=== PATIENT | male | born 1985 | race Two or more races ===

== ENCOUNTER 2021-05-27 14:46 | Emergency (ER) | payer MEDICAID, OTHER ==
[~2021-05-27] VITALS: Ht 190.5 cm; Wt 122.5 kg
[2021-05-27 14:53] VITALS: BP 133/109
== END 2021-05-27 16:23 | disposition left against medical advice (07) ==
LOC: ER 14:46
DX: M54.9 Dorsalgia, unspecified (principal); Z53.21 Procedure and treatment not carried out due to patient leaving prior to being seen by health care provider

== ENCOUNTER 2021-09-06 02:13 | Emergency (ER) | payer MEDICAID, OTHER ==
[~2021-09-06] VITALS: Ht 190.5 cm; Wt 117.9 kg
[2021-09-06 03:02] LABS: Basophils # (auto) 0 10 ^3/uL (0-0.2); Basophils % (auto) 0.4 % (0.0-2.0); Eosinophils # (auto) 0.3 10 ^3/uL (0-0.8); Eosinophils % (auto) 3.8 % (0.0-7.0); Hematocrit 44.6 % (41.0-53.0); Hemoglobin 15.4 g/dL (13.5-17.5); Lymphocytes # (auto) 2.4 10 ^3/uL (0.4-5.4); Lymphocytes % (auto) 29.4 % (10.0-50.0); Mean Corpuscular Hemoglobin 29.1 pg (28.0-32.0); Mean Corpuscular Hgb Conc. 34.5 g/dL (32.0-36.0); Mean Corpuscular Volume 84.4 fL (80.0-100.0); Monocytes # (auto) 0.6 10 ^3/uL (0-1.3); Monocytes % (auto) 7.6 % (0.0-12.0); Neutrophils # (auto) 4.7 10 ^3/uL (1.6-8.6); Neutrophils % (auto) 58.8 % (37.0-80.0); Nucleated Red Blood Cells % 0.1 %; Red Blood Cells 5.29 10^6/uL (4.5-5.90); Red Cell Distribution Width 14.4 % (11.8-14.3); White Blood Cell 8.1 10^3/uL (4.4-10.8)
[2021-09-06 03:22] LABS: Albumin 3.8 g/dL (3.4-5.0); BUN/Creatinine Ratio 10.6; Calcium 8.8 mg/dL (8.5-10.1); Potassium 3.4 mmol/L (3.5-5.1)
[2021-09-06 03:26] VITALS: BP 168/110
[2021-09-06 03:26] LABS: Bilirubin, Total 0.6 mg/dL (0.2-1.0); Total Protein 8.2 g/dL (6.4-8.2)
== END 2021-09-06 05:28 | disposition left against medical advice (07) ==
LOC: ER 02:24
DX: R07.9 Chest pain, unspecified (principal); R20.2 Paresthesia of skin; Z53.21 Procedure and treatment not carried out due to patient leaving prior to being seen by health care provider
CPT/HCPCS: 36415; 80053; 84484; 85025

== ENCOUNTER 2021-09-18 12:04 | Emergency (ER) | payer OTHER ==
[~2021-09-18] VITALS: Ht 190.5 cm; Wt 122.5 kg
[2021-09-18 12:04] VITALS: BP 168/114
[2021-09-18 13:09] LABS: Basophils # (auto) 0 10 ^3/uL (0-0.2); Basophils % (auto) 0.4 % (0.0-2.0); Eosinophils # (auto) 0.4 10 ^3/uL (0-0.8); Eosinophils % (auto) 4.8 % (0.0-7.0); Hemoglobin 15.6 g/dL (13.5-17.5); Lymphocytes # (auto) 1.7 10 ^3/uL (0.4-5.4); Lymphocytes % (auto) 22.1 % (10.0-50.0); Mean Corpuscular Hemoglobin 28.2 pg (28.0-32.0); Mean Corpuscular Hgb Conc. 33.3 g/dL (32.0-36.0); Mean Corpuscular Volume 84.7 fL (80.0-100.0); Monocytes # (auto) 0.5 10 ^3/uL (0-1.3); Monocytes % (auto) 6.8 % (0.0-12.0); Neutrophils # (auto) 5.1 10 ^3/uL (1.6-8.6); Neutrophils % (auto) 65.9 % (37.0-80.0); Nucleated Red Blood Cells % 0.1 %; Red Blood Cells 5.56 10^6/uL (4.5-5.90); Red Cell Distribution Width 14.7 % (11.8-14.3); White Blood Cell 7.7 10^3/uL (4.4-10.8)
[2021-09-18 13:17] LABS: Albumin 3.7 g/dL (3.4-5.0); BUN/Creatinine Ratio 17.8; Calcium 9.7 mg/dL (8.5-10.1); Potassium 4.1 mmol/L (3.5-5.1)
[2021-09-18 13:20] LABS: Bilirubin, Total 0.5 mg/dL (0.2-1.0); Total Protein 7.7 g/dL (6.4-8.2)
[2021-09-18 13:47] LABS: Urine Bacteria NONE SEEN /hpf (None Seen); Urine Blood Negative /uL (Negative); Urine Mucus FEW (None Seen); Urine Specific Gravity 1.028 (1.001-1.035); Urine WBC 7 /hpf (0 - 3)
== END 2021-09-18 15:57 | disposition left against medical advice (07) ==
LOC: ER 12:04
DX: R07.9 Chest pain, unspecified (principal); R06.02 Shortness of breath; Z53.21 Procedure and treatment not carried out due to patient leaving prior to being seen by health care provider
CPT/HCPCS: 36415; 71046; 80053; 81001; 84484; 85025; 93005

== ENCOUNTER 2024-08-05 22:35 | Inpatient (IN) | payer MEDICAID, OTHER ==
[~2024-08-05] VITALS: Ht 190.5 cm; Wt 110.5 kg
[2024-08-05] MEDS: cloNIDine HCL 0.1 MG TAB PO ONE (23:09)
[2024-08-05 23:35] LABS: Basophils # (auto) 0 10 ^3/uL (0-0.2); Basophils % (auto) 0.4 % (0.0-2.0); Eosinophils # (auto) 0.2 10 ^3/uL (0-0.8); Eosinophils % (auto) 1.7 % (0.0-7.0); Hematocrit 42.4 % (41.0-53.0); Hemoglobin 13.8 g/dL (13.5-17.5); Lymphocytes % (auto) 20.2 % (10.0-50.0); Mean Corpuscular Hemoglobin 27.6 pg (28.0-32.0); Mean Corpuscular Hgb Conc. 32.5 g/dL (32.0-36.0); Monocytes # (auto) 0.9 10 ^3/uL (0-1.3); Monocytes % (auto) 8.5 % (0.0-12.0); Neutrophils % (auto) 69.2 % (37.0-80.0); Nucleated Red Blood Cells % 0.1 %; Platelet Count (auto) 227 10^3/uL (140-450); Red Blood Cells 4.99 10^6/uL (4.5-5.90); White Blood Cell 10.1 10^3/uL (4.4-10.8)
[2024-08-05 23:52] LABS: Albumin 4.4 g/dL (3.2-4.8); Alkaline Phosphatase 99 U/L (46-116); Anion Gap 10 (5-15); BUN/Creatinine Ratio 13.2 (10.0-20.0); Blood Urea Nitrogen 17 mg/dL (9-23); Calcium 9.9 mg/dL (8.7-10.4); Carbon Dioxide 26 mmol/L (20-31); Chloride 104 mmol/L (98-107); Glucose 92 mg/dL (74-106); Potassium 4.1 mmol/L (3.5-5.1); Sodium 140 mmol/L (136-145)
[2024-08-05 23:53] LABS: Alanine Aminotransferase 47 U/L (7-40); Aspartate Aminotransferase 44 U/L (13-40); Bilirubin, Total 1.5 mg/dL (0.2-1.0); Total Protein 7.1 g/dL (5.7-8.2)
[2024-08-06] VITALS (50 sets, daily range): BP systolic 114–142; BP diastolic 67–103; PULSE 101–116; RESP 7–41; TEMP 97.5–98.6; O2SAT 92–99
--- NOTE | 2024-08-06 00:37 | ED.PDOC ---
History of Present Illness HPI Comments 39 y/o M, with a history of HTN and obesity, presents with c/o HTN, shortness of breaht, othropnea, and bilateral leg swelling, today. Patient reports on checking and noticing his blood pressure being elevated in the 180's/120's range after onset of other aforementioned symptoms, earlier. He comments on taking losartan to manage his blood pressure, exclusively. Denies any chest pain, cough, congestion, fever, chills, or other associated symptoms at this time. Chief Complaint: High Blood Pressure Time Seen by MD: 22:50 Reviewed Notes: Nurses Notes, Medications, Allergies Allergies: Coded Allergies: No Known Drug Allergy (Verified Allergy, Unknown, 05/27/21) Information Source: Patient Mode of Arrival: Ambulatory Severity: Moderate Timing: Hours Duration: Since onset Prehospital treatment: None Past Medical History PAST MEDICAL HISTORY: HTN Past Medical History (Other): obesity Respiratory: reports: orthopnea, shortness of breath Musculoskeletal: reports: others (bilateral leg swelling ) Hematologic/Lymphatic: reports: others (HTN ) All Other Systems: Reviewed and Negative (negative unless otherwise stated above or in HPI) Physical Exam General Appearance: No Apparent Distress, Normal HEENT: Normal ENT Inspection, Pharynx Normal, TMs Normal Neck: Full Range of Motion, Non-Tender, Normal, Normal Inspection Respiratory: Chest Non-Tender, Lungs Clear, No Accessory Muscle Use, No Respiratory Distress, Normal Breath Sounds Cardiovascular: No Edema, No JVD, No Murmur, No Gallop, Normal Peripheral Pulses, Regular Rate/Rhythm Breast Exam: Deferred Gastrointestinal: No Organomegaly, Non Tender, No Pulsatile Mass, Normal Bowel Sounds, Soft Genitalia: Deferred Pelvic: Deferred Rectal: Deferred Extremities: Leg edema (3+ pitting bilateral edema ), No calf tenderness, Normal capillary refill, Normal range of motion, Non-tender Musculoskeletal : Apperance: Normal Neurologic: Alert, can pusher II-XII nml as Tested, No Motor Deficits, Normal Affect, Normal Mood, No Sensory Deficits Cerebellar Function: Normal Reflexes: Normal Skin: Dry, Normal Color, Warm Lymphatic: No Adenopathy Was a procedure done? Was a procedure done?: No Differential Dx Considerations may include: HTN emergency, fluid retention, URI, viral syndrome X-Ray, Labs, Meds, VS Vital Signs Date Time Temp Pulse Resp B/P (MAP) Pulse Ox O2 Delivery O2 Flow Rate FiO2 08/06/24 00:25 122 08/05/24 23:09 189/155 08/05/24 22:54 98.1 130 16 189/155 (166) 98 Lab Test 08/06/24 00:15 08/05/24 23:08 Range/Units Troponin I High Sensitivity 95 *H 90 *H </=54 ng/L White Blood Count 10.1 4.4-10.8 10^3/uL Red Blood Count 4.99 4.5-5.90 10^6/uL Hemoglobin 13.8 13.5-17.5 g/dL Hematocrit 42.4 41.0-53.0 % Mean Corpuscular Volume 85.0 80.0-100.0 fL Mean Corpuscular Hemoglobin 27.6 L 28.0-32.0 pg Mean Corpuscular Hemoglobin Concent 32.5 32.0-36.0 g/dL Red Cell Distribution Width 16.0 H 11.8-14.3 % Platelet Count 227 140-450 10^3/uL Mean Platelet Volume 7.8 6.9-10.8 fL Neutrophils (%) (Auto) 69.2 37.0-80.0 % Lymphocytes (%) (Auto) 20.2 10.0-50.0 % Monocytes (%) (Auto) 8.5 0.0-12.0 % Eosinophils (%) (Auto) 1.7 0.0-7.0 % Basophils (%) (Auto) 0.4 0.0-2.0 % Neutrophils # (Auto) 7.0 1.6-8.6 10 ^3/uL Lymphocytes # (Auto) 2.0 0.4-5.4 10 ^3/uL Monocytes # (Auto) 0.9 0-1.3 10 ^3/uL Eosinophils # (Auto) 0.2 0-0.8 10 ^3/uL Basophils # (Auto) 0 0-0.2 10 ^3/uL Nucleated Red Blood Cells 0.1 % Sodium Level 140 136-145 mmol/L Potassium Level 4.1 3.5-5.1 mmol/L Chloride Level 104 98-107 mmol/L Carbon Dioxide Level 26 20-31 mmol/L Anion Gap 10 5-15 Blood Urea Nitrogen 17 9-23 mg/dL Creatinine 1.29 0.700-1.30 mg/dL Glomerular Filtration Rate Calc 73 >90 mL/min BUN/Creatinine Ratio 13.2 10.0-20.0 Serum Glucose 92 74-106 mg/dL Calcium Level 9.9 8.7-10.4 mg/dL Total Bilirubin 1.5 H 0.2-1.0 mg/dL Aspartate Amino Transferase (AST) 44 H 13-40 U/L Alanine Aminotransferase (ALT) 47 H 7-40 U/L Alkaline Phosphatase 99 46-116 U/L B-Type Natriuretic Peptide 595.87 0-100 pg/mL Total Protein 7.1 5.7-8.2 g/dL Albumin 4.4 3.2-4.8 g/dL Current Medications Medications (Trade) Dose Ordered Sig/Nathan Route Start Time Stop Time Status Last Admin Clonidine HCl (Catapres Tablet) 0.2 mg ONCE ONCE PO 08/05/24 23:00 08/05/24 23:01 DC 08/05/24 23:09 [place] [id number] Ph: [phone] DIAGNOSTIC IMAGING Diagnostic Imaging Report : [id number] Signed PATIENT: LOREN VALDES ACCT: [id number] UNIT: [id number] : 1985 LOC: ER ROOM / BED: / AGE / SEX: 39 / M ADM STATUS: REG ER SERVICE ORDERING PHYSICIAN: CODY REDDING PROCEDURE(s): CXR1 - CHEST XRAY 1 VIEW REASON: sob ORDER NUMBER(s): [id number], ACCESSION NUMBER(s): [id number] CHEST RADIOGRAPH Indication: sob Technique: Single frontal view of the chest was obtained COMPARISON: None FINDINGS: Lines and Tubes: None Lungs: Clear Pleura: No effusion. No pneumothorax. Cardiomediastinal contours: Mild cardiomegaly Bones: Unremarkable IMPRESSION: 1. No acute disease. ATED BY: SHAY DUMONT MD DICTATED DATE/TIME: 08/06/2449 SIGNED BY: SHAY DUMONT MD SIGNED DATE/TIME: 08/06/2449 CC: X-Ray, Labs, Meds, VS Comment Imaging: X-rays and CT scans were reviewed and interpreted by this provider, imaging shows no fractures and no pathological disease. Pending radiology review. Laboratory: Labs reviewed and interpreted by this provider. Elevated troponins, elevated BNP Patient will be admitted for ACS, NSTEMI Patient will be admitted for CHF exacerbation Patient will be started on 20 mg Lasix Recommend cardiology consult in the morning Patient has prior medical visits reviewed. Med reconciliation performed Vital signs reviewed Time of 1ST Reevaluation: 23:20 Reevaluation 1ST: Unchanged Patient Education/Counseling: Diagnosis, Treatment Family Education/Counseling: No Family Present Departure 1 Departure Time of Disposition: 01:09 Impression: Primary Impression: CHF (congestive heart failure) Qualified Codes: I50.21 - Acute systolic (congestive) heart failure Additional Impressions: Elevated troponin Peripheral edema Shortness of breath Disposition: ADMITTED INPATIENT Condition: Fair Discharged With: Self Critical Care Note Critical Care Time?: No Stability Stability form required: No Heart Score Heart Score: Heart Score Response (Comments) Value History Slightly Suspicious 0 EKG Normal 0 Age <45 0 Risk Factors 1 or 2 risk factors 1 Troponin 1-2 x's Normal limit 1 Total 2 I personally scribed for CODY REDDINGP ([email or web address]) on 08/06/24 at 00:37. Electronically submitted by Nikunj Beckwith ([email or web address]). I personally scribed for CODY REDDING COPYHOLDER ([email or web address]) on 08/06/24 at 00:58. Electronically submitted by Nikunj Beckwith ([email or web address]). CODY REDDING COPYHOLDER Aug 06, 2024 00:37
--- NOTE | 2024-08-06 00:53 | DVH ---
CHEST RADIOGRAPH Indication: sob Technique: Single frontal view of the chest was obtained COMPARISON: None FINDINGS: Lines and Tubes: None Lungs: Clear Pleura: No effusion. No pneumothorax. Cardiomediastinal contours: Mild cardiomegaly Bones: Unremarkable IMPRESSION: 1. No acute disease.
[2024-08-06] MEDS ORDERED: NITROGLYCERIN 0.4 MG SL TAB SL PRN (01:45)
[2024-08-06] MEDS ORDERED: MORPHINE SULFATE INJ 2 MG/ml SYRG IV PRN (01:45)
--- NOTE | 2024-08-06 02:06 | DVHHPRES ---
History of Present Illness Resident Creating Document: SATNAM HEIN RESIDENT History of Present Illness Familia Raza is a 39-year-old male with a PMH of hypertension, asthma, eczema presented to the ED with the chief complaints of lower extremity edema since day prior to admission. Patient reported per past 1 week patient has been having difficulty in sleeping due to shortness of breath while lying down, orthopnea and PND associated with mild dry cough and he observed lower extremity swelling yesterday which is not has been improved which prompted him to visit ED. patient reported he has been diagnosed with a hypertension for 5 years and has been taking losartan 50 mg and his blood pressure is always in 180s. On my assessment patient denies headache, dizziness, nausea, vomiting, palpitations, chest pain, diaphoresis, and other acute associated symptoms. PMH: HTN since 6 years, asthma since childhood, eczema PSH: Denies Family history: Hypertension in mother, maternal uncle and grandfather have heart failure Social history: Lives with family. Methamphetamine abuser quit 2 weeks ago but denies smoking alcohol and other illicit drug abuse Allergies: No known allergies Home medications: Losartan 50 mg, albuterol inhaler, triamcinolone cream Review of Systems Constitutional: No: Fever, Chills, Sweats, Weakness, Malaise, Other Eyes: No: Pain, Vision change, Conjunctivae inflammation, Eyelid inflammation, Other, Redness ENT: No: Ear pain, Ear discharge, Nose pain, Nose discharge, Nose congestion, Mouth pain, Mouth swelling, Throat pain, Throat swelling, Other Respiratory: Shortness of breath Cardiovascular: Orthopnea, Paroxysmal Noc. Dyspnea, Edema Gastrointestinal: No: Nausea, Vomiting, Abdominal Pain, Diarrhea, Constipation, Melena, Hematochezia, Other Genitourinary: No Dysuria, No Frequency, No Incontinence, No Hematuria, No Retention, No Other Musculoskeletal: No: other, neck pain, shoulder pain, arm pain, back pain, hand pain, leg pain, foot pain Skin: No: Rash, Lesions, Jaundice, Bruising, Other Neurological: No: Weakness, Numbness, Incoordination, Change in speech, Confusion, Seizures, Other Allergies: Coded Allergies: No Known Drug Allergy (Verified Allergy, Unknown, 05/27/21) Medications Current Medications Medications Dose Ordered Sig/Nathan Route Start Time Stop Time Status Last Admin Dose Admin Losartan Potassium 50 mg DAILY PO 08/06/24 10:00 Furosemide 40 mg BID IV 08/06/24 01:45 Nicardipine HCl 250 ml @ 50 mls/hr Q5H IV 08/06/24 01:45 Sodium Chloride 10 ml Q8HR IV 08/06/24 06:00 Enoxaparin Sodium 40 mg DAILY SC 08/06/24 10:00 Acetaminophen 650 mg Q6HP PRN PO 08/06/24 01:45 Nitroglycerin 0.4 mg Q5MINP PRN SL 08/06/24 01:45 Morphine Sulfate 2 mg Q30M PRN IV 08/06/24 01:45 Exam Vital Signs Vital Signs Date Time Temp Pulse Resp B/P (MAP) Pulse Ox O2 Delivery O2 Flow Rate FiO2 08/06/24 01:43 98.1 116 32 174/130 (145) 98 98.1 Exam Pt is lying on bed General Appearance: Alert, Oriented X3, Cooperative, Not in acute distress HEENT: Atraumatic, Mucous membranes moist/pink Respiratory: Clear to auscultation, Normal air movement, No added sounds Cardiovascular: Regular rate, Normal S1, Normal S2, No murmurs Abdominal: Active bowel sounds, Soft, no distention, no tenderness Extremities: 2+ BLE edema, Normal pulses, No tenderness/swelling Skin: No Significant rash, except past surgical scars Neuro: Normal speech, sensorimotor deficits none Psych/Mental Status: Mental status NL, Mood NL Nurse was there as sharperone during examination Labs/Xrays Labs Test 08/06/24 00:15 08/05/24 23:08 Range/Units Troponin I High Sensitivity 95 *H </=54 ng/L White Blood Count 10.1 4.4-10.8 10^3/uL Red Blood Count 4.99 4.5-5.90 10^6/uL Hemoglobin 13.8 13.5-17.5 g/dL Hematocrit 42.4 41.0-53.0 % Mean Corpuscular Volume 85.0 80.0-100.0 fL Mean Corpuscular Hemoglobin 27.6 L 28.0-32.0 pg Mean Corpuscular Hemoglobin Concent 32.5 32.0-36.0 g/dL Red Cell Distribution Width 16.0 H 11.8-14.3 % Platelet Count 227 140-450 10^3/uL Mean Platelet Volume 7.8 6.9-10.8 fL Neutrophils (%) (Auto) 69.2 37.0-80.0 % Lymphocytes (%) (Auto) 20.2 10.0-50.0 % Monocytes (%) (Auto) 8.5 0.0-12.0 % Eosinophils (%) (Auto) 1.7 0.0-7.0 % Basophils (%) (Auto) 0.4 0.0-2.0 % Neutrophils # (Auto) 7.0 1.6-8.6 10 ^3/uL Lymphocytes # (Auto) 2.0 0.4-5.4 10 ^3/uL Monocytes # (Auto) 0.9 0-1.3 10 ^3/uL Eosinophils # (Auto) 0.2 0-0.8 10 ^3/uL Basophils # (Auto) 0 0-0.2 10 ^3/uL Nucleated Red Blood Cells 0.1 % Sodium Level 140 136-145 mmol/L Potassium Level 4.1 3.5-5.1 mmol/L Chloride Level 104 98-107 mmol/L Carbon Dioxide Level 26 20-31 mmol/L Anion Gap 10 5-15 Blood Urea Nitrogen 17 9-23 mg/dL Creatinine 1.29 0.700-1.30 mg/dL Glomerular Filtration Rate Calc 73 >90 mL/min BUN/Creatinine Ratio 13.2 10.0-20.0 Serum Glucose 92 74-106 mg/dL Calcium Level 9.9 8.7-10.4 mg/dL Total Bilirubin 1.5 H 0.2-1.0 mg/dL Aspartate Amino Transferase (AST) 44 H 13-40 U/L Alanine Aminotransferase (ALT) 47 H 7-40 U/L Alkaline Phosphatase 99 46-116 U/L B-Type Natriuretic Peptide 595.87 0-100 pg/mL Total Protein 7.1 5.7-8.2 g/dL Albumin 4.4 3.2-4.8 g/dL Assessment/Plan Assessment/Plan # ? New onset systolic versus diastolic CHF # hypertensive emergency # NSTEMI type 2 likely due to above -continuously monitoring on telemetry -currently received Lasix, losartan, nicardipine drip -closely monitor blood pressure -ordered echocardiogram -cardiology consult -ordered UDS -elevated BNP, troponins -reviewed EKG # asthma not in exacerbation -resume home meds # methamphetamine abuse disorder -ordered UDS -counseled regarding cessation for >17 minutes # rule out DVT -ordered scan PUD PPX: Not indicated VTE PPX: Lovenox Diet: Cardiac diet Goals of care discussed with the patient for more than 27 minutes: Full code status Case discussed with Dr. Killian, patient and nurse Plan discussed with: Patient My Orders Orders - SATNAM HEIN RESIDENT Procedure Category Date Status Time Admit ADMIT 08/06/24 Transmitted 01:41 Allergies MAIK 08/06/24 In Process 01:41 Code Status CODE 08/06/24 Transmitted 01:41 Sodium Chloride Lock PHA 08/06/24 In Process (Saline Lock Ns) 06:00 Enoxaparin Sodium PHA 08/06/24 In Process (Lovenox) 10:00 Complete Blood Count LAB 08/06/24 Transmitted 04:00 Comprehensive LAB 08/06/24 Transmitted Metabolic Panel 04:00 Cardiac DIET 08/06/24 Transmitted Diet-2gna,Lofat,Lochol Breakfast Echo 2d Mode Cardiac US 08/06/24 Logged DOP 01:41 Condition: Stable MAIK 08/06/24 In Process 01:41 Acetaminophen Tablet PHA 08/06/24 In Process (Tylenol Tablet) 01:45 Nitroglycerin PHA 08/06/24 In Process Sublingual (Ntrostat 01:45 Morphine Sulfate PHA 08/06/24 In Process Injection 01:45 Oxygen By Nasal RT 08/06/24 Transmitted Cannula 01:41 Stat Ekg For Chest [facility] 08/06/24 In Process Pain 01:41 Notify Of Changes [facility] 08/06/24 In Process From Base 01:41 Bending Machine Set Up Operator For [facility] 08/06/24 In Process 24 Hours 01:41 Emergency Dysrhythmia [facility] 08/06/24 In Process Protocol 01:41 Rhythm Strips Once [facility] 08/06/24 In Process Every Shift 01:41 Bilat Lower Dvt US 08/06/24 Logged 01:46 Blood Alcohol LAB 08/06/24 Logged 01:47 Covid19 Antigen [place] LAB 08/06/24 Logged Drug Screen LAB 08/06/24 Logged 01:47 Hemoglobin A1c LAB 08/06/24 Logged 01:47 Lipid Panel LAB 08/06/24 Logged 01:47 Magnesium LAB 08/06/24 Logged 01:47 PTPTT LAB 08/06/24 Logged 01:47 Rapid Influenza A&B LAB 08/06/24 Logged 01:47 Thyroid Stimulating LAB 08/06/24 Logged Hormone 01:47 Urinalysis LAB 08/06/24 Logged 01:47 Hepatic Panel LAB 08/06/24 Logged 01:47 D-Dimer LAB 08/06/24 Logged 01:47 Transfer Orders XFER 08/06/24 Transmitted 01:57 Date of Service: Aug 06, 2024 Billing Provider: PEYTON KILLIAN MD Common Visit Codes: [id number]-[id number] INP/OBS CARE (HIGH) SATNAM HEIN RESIDENT Aug 06, 2024 02:05 PEYTON KILLIAN MD Aug 06, 2024 19:58
[2024-08-06 02:28] LABS: Triglycerides 80 mg/dL (< 150)
[2024-08-06 02:29] LABS: LDL Cholesterol 97 mg/dL (< 100)
[2024-08-06 02:30] LABS: Albumin 4.3 g/dL (3.2-4.8); Alkaline Phosphatase 97 U/L (46-116); Magnesium 1.9 mg/dL (1.6-2.6)
[2024-08-06 02:31] LABS: Cholesterol 156 mg/dL (< 200); HDL Cholesterol 45 mg/dL (40-59); Total Protein 7.3 g/dL (5.7-8.2)
[2024-08-06] MEDS: FUROSEMIDE 40 MG/4 ML VIAL IV SCH (02:36)
[2024-08-06 02:41] LABS: Alanine Aminotransferase 48 U/L (7-40); Aspartate Aminotransferase 41 U/L (13-40); Bilirubin, Direct 0.5 mg/dL (<0.3); Bilirubin, Total 1.4 mg/dL (0.2-1.0); Blood Alcohol < 3.0 mg/dL (<10)
[2024-08-06 02:47] LABS: INR 1.11 (0.9-1.15); Partial Thromboplastin Time 26.8 SEC (24.5-34.5); Prothrombin Time 11.6 sec (9.3-11.8)
[2024-08-06 03:08] LABS: Urine Bacteria None Seen /hpf (None Seen)
[2024-08-06 03:24] LABS: Urine Blood Negative /uL (Negative); Urine Clarity Clear (Clear); Urine Color Light-Yellow (Yellow); Urine Mucus FEW (None Seen); Urine Protein, UAD 1+ (Negative); Urine Specific Gravity 1.014 (1.001-1.035); Urine Sperm PRESENT /hpf (None Seen); Urine Squamous Epithelial Cell FEW /hpf (<5); Urine Urobilinogen Normal (Negative); Urine WBC 1 /HPF (0-3); Urine pH 5.5 (5.0-9.0)
[2024-08-06 03:27] LABS: Amphetamine Screen, Urine Pos (NEGATIVE); Barbiturate Scree,Urine Neg (NEGATIVE); Benzodiazephine Screen, Urine Neg (NEGATIVE); Cannabinoid Screen, Urine Neg (NEGATIVE); Cocaine Screen, Urine Neg (NEGATIVE); Phencyclidine Screen, Urine Neg (NEGATIVE)
[2024-08-06 03:31] LABS: Opiate Scree,Urine Neg (NEGATIVE)
--- NOTE | 2024-08-06 03:49 | DVH ---
Examination: BLDVT CLINICAL INDICATION: rule out VTE COMPARISON: None. TECHNIQUE: Using real-time ultrasonic imaging and color Doppler the deep venous system of both lower extremities was studied from the level of the common femoral veins to the posterior tibial veins. FINDINGS: Ultrasound examination of bilateral common femoral veins, bilateral deep femoral veins, th e proximal, middle and distal segments of bilateral superficial femoral veins, bilateral popliteal ve ins, and bilateral posterior tibial veins reveal normal phasicity and compression and augmentation. No thrombus was visualized. IMPRESSION: There is no evidence of deep venous thrombosis in bilateral lower extremity venous syste ms. Electronically Signed 08/06/2024 03:48 Denise Grace
[2024-08-06 05:25] LABS: COVID19 ANTIGEN SOFIA FIA NEGATIVE (NEGATIVE); Rapid Influenza A Negative (Negative); Rapid Influenza B Negative (Negative)
[2024-08-06 05:36] LABS: Basophils # (auto) 0.1 10 ^3/uL (0-0.2); Basophils % (auto) 0.7 % (0.0-2.0); Eosinophils # (auto) 0.2 10 ^3/uL (0-0.8); Eosinophils % (auto) 2.1 % (0.0-7.0); Hematocrit 40.7 % (41.0-53.0); Hemoglobin 13.3 g/dL (13.5-17.5); Lymphocytes # (auto) 2.4 10 ^3/uL (0.4-5.4); Lymphocytes % (auto) 20.6 % (10.0-50.0); Mean Corpuscular Hemoglobin 27.6 pg (28.0-32.0); Mean Corpuscular Hgb Conc. 32.7 g/dL (32.0-36.0); Mean Corpuscular Volume 84.4 fL (80.0-100.0); Monocytes % (auto) 8.3 % (0.0-12.0); Neutrophils # (auto) 7.9 10 ^3/uL (1.6-8.6); Neutrophils % (auto) 68.3 % (37.0-80.0); Platelet Count (auto) 227 10^3/uL (140-450); Red Blood Cells 4.82 10^6/uL (4.5-5.90); Red Cell Distribution Width 15.8 % (11.8-14.3); White Blood Cell 11.5 10^3/uL (4.4-10.8)
[2024-08-06] MEDS: SODIUM CHLOR 0.9% PF (SALINE LOCK) 10ML VIAL/SYR IV SCH (06:00)
[2024-08-06 06:04] LABS: Albumin 4.4 g/dL (3.2-4.8); Alkaline Phosphatase 94 U/L (46-116); Anion Gap 11 (5-15); BUN/Creatinine Ratio 11.8 (10.0-20.0); Blood Urea Nitrogen 14 mg/dL (9-23); Calcium 9.9 mg/dL (8.7-10.4); Carbon Dioxide 24 mmol/L (20-31); Chloride 104 mmol/L (98-107); Sodium 139 mmol/L (136-145); Total Protein 7.4 g/dL (5.7-8.2)
[2024-08-06 06:42] LABS: Alanine Aminotransferase 43 U/L (7-40); Aspartate Aminotransferase 40 U/L (13-40); Bilirubin, Total 1.6 mg/dL (0.2-1.0); Glucose 117 mg/dL (74-106); Potassium 3.3 mmol/L (3.5-5.1)
[2024-08-06] MEDS: POTASSIUM CHL 20 Meq TABLET PO ONE (10:07)
[2024-08-06] MEDS: LOSARTAN POTASSIUM 50 MG TAB PO SCH (10:12)
[2024-08-06] MEDS: ENOXAPARIN SOD 40 MG/0.4 ML SYRINGE SC SCH (10:16)
--- NOTE | 2024-08-06 13:46 | ECG ---
[facility] Test Date: 2024-08-06 Test Time: 00:25:43 Pat Name: LOREN VALDES Department: ED Room: 0270T Gender: M Unbundler: TEETEE : 1985 Requested By: CODY REDDING Order Number: [id number] Reading MD: Cruz Carreno Measurements Intervals [place] Rate: 122 P: 65 NM: 143 QRS: 104 QRSD: 114 T: 0 QT: 349 QTc: 498 Interpretive Statements Sinus tachycardia Probable left atrial enlargement Incomplete right bundle branch block Consider left ventricular hypertrophy Borderline prolonged QT interval Electronically Signed On 08-10-2024 17:26:19 PST by Cruz Carreno Please click the below link to view image of tracing.
--- NOTE | 2024-08-06 14:43 | DVHPNRES ---
Progress Note Date Seen: Aug 06, 2024 Resident Creating Document: SUSAN MILTON RESIDENT Medical Necessity Reason Pt with a Central, PICC or Fol: No Subjective Review of Systems PMH- PSH- Allergy- Personal History/ Social History- Patient was seen today at the bedside. Patient Cardiovascular- deny acute chest pain or shortness of breath or cough or palpitation Respiratory denies cough or short of breath or wheezing Gastrointestinal- denies any rectal bleeding, nausea or vomiting Musculoskeletal-denies acute joint swelling or tenderness or redness Neurological- denies acute dysarthria, dysphagia, change in vision Psychiatry- denies depression or SI or HI Skin- denies acute rash or purpura Objective vital signs Vital Sign Date Time Temp Pulse Resp B/P (MAP) Pulse Ox O2 Delivery O2 Flow Rate FiO2 08/06/24 12:00 105 08/06/24 12:00 28 98 Nasal Cannula* 2 08/06/24 11:45 125/87 (100) 08/06/24 08:00 98.0 98.0 Total Intake and Output 08/05/24 08/05/24 08/06/24 15:00 23:00 07:00 Intake Total 375 ml Balance 375 ml medications Current Medications Medications Dose Ordered Sig/Nathan Route Start Time Stop Time Status Last Admin Dose Admin Losartan Potassium 50 mg DAILY PO 08/06/24 10:00 08/06/24 10:12 50 MG Furosemide 40 mg BID IV 08/06/24 01:45 08/06/24 10:11 40 MG Nicardipine HCl 250 ml @ 50 mls/hr Q5H IV 08/06/24 01:45 08/06/24 10:01 50 MLS/HR Sodium Chloride 10 ml Q8HR IV 08/06/24 06:00 Enoxaparin Sodium 40 mg DAILY SC 08/06/24 10:00 08/06/24 10:16 40 MG Acetaminophen 650 mg Q6HP PRN PO 08/06/24 01:45 Nitroglycerin 0.4 mg Q5MINP PRN SL 08/06/24 01:45 Morphine Sulfate 2 mg Q30M PRN IV 08/06/24 01:45 Examination General examination- HEENT- PEERLA, no acute nasal discharge Cardiovascular- S1-S2 audible, rate and rhythm regular, no murmur Respiratory- CTAB, no wheeze or rhonchi Gastrointestinal-nontender, bowel sound+. Nondistended Musculoskeletal-no acute joint swelling or tenderness or redness# Lower extremity- Neurological- cranial nerves intact, no acute dysarthria or dysphagia Psychiatry- denies depression or SI or HI Skin- no acute rash or purpura laboratory and microbiology Laboratory Tests 08/06/24 05:01 Test 08/06/24 05:01 Range/Units Serum Glucose 117 H 74-106 mg/dL Problem List/Assessment/Plan Problem List/Assessment/Plan Goals of care/advance care planning; FULL CODE; discussed with the patient >15 minutes PUD prophylaxis: DVT prophylaxis: Plan discussed with Dr. Mark , nursing staff, patient Total time spent on patient evaluation, chart review, assessment and plan, discussion discussion >31 minutes Plan discussed with: Patient Plan discussed with: Patient, Other (MOTHER, RN) SUSAN MILTON RESIDENT Aug 06, 2024 14:43
[2024-08-06] MEDS: ACETAMINOPHEN 325 MG TAB PO PRN (18:52)
--- NOTE | 2024-08-06 20:35 | DVHPNRES ---
Progress Note Date Seen: Aug 06, 2024 Resident Creating Document: SUSAN MILTON RESIDENT Medical Necessity Reason Pt with a Central, PICC or Fol: No Subjective Review of Systems Familia Raza is a 39-year-old male with a PMH of hypertension, asthma, eczema presented to the ED with the chief complaints of lower extremity edema since day prior to admission. Patient reported per past 1 week patient has been having difficulty in sleeping due to shortness of breath while lying down, orthopnea and PND associated with mild dry cough and he observed lower extremity swelling yesterday which is not has been improved which prompted him to visit ED. patient reported he has been diagnosed with a hypertension for 5 years and has been taking losartan 50 mg and his blood pressure is always in 180s. On my assessment patient denies headache, dizziness, nausea, vomiting, palpitations, chest pain, diaphoresis, and other acute associated symptoms. Significant lab workup revealed potassium 3.3, bilirubin 1.6, troponin 90, BNP 595, UDS positive for amphetamine. PMH: HTN since 5 years, asthma since childhood, eczema PSH: Denies Family history: Hypertension in mother, maternal uncle and grandfather have heart failure Social history: Lives with family. Methamphetamine abuser quit 2 weeks ago but denies smoking alcohol and other illicit drug abuse Allergies: No known allergies Home medications: Losartan 50 mg, albuterol inhaler, triamcinolone cream Patient was seen today at the bedside. Cardiovascular- deny acute palpitation Respiratory denies wheezing Gastrointestinal- denies any rectal bleeding, nausea or vomiting Musculoskeletal-denies acute joint swelling or tenderness or redness Neurological- denies acute dysarthria, dysphagia, change in vision Psychiatry- denies depression or SI or HI Skin- denies acute rash or purpura Patient was seen today for clinical evaluation. Less than chart reviewed. Patient reported feeling better today but feels orthopnea times. Pending cardiology consult. Pending echo 2D report. Objective vital signs Vital Sign Date Time Temp Pulse Resp B/P (MAP) Pulse Ox O2 Delivery O2 Flow Rate FiO2 08/06/24 19:30 98.2 111 20 132/98 (109) 96 98.2 08/06/24 19:30 Room Air* 0 21 Total Intake and Output 08/05/24 08/05/24 08/06/24 15:00 23:00 07:00 Intake Total 375 ml Balance 375 ml medications Current Medications Medications Dose Ordered Sig/Nathan Route Start Time Stop Time Status Last Admin Dose Admin Losartan Potassium 50 mg DAILY PO 08/06/24 10:00 08/06/24 10:12 50 MG Furosemide 40 mg BID IV 08/06/24 01:45 08/06/24 10:11 40 MG Nicardipine HCl 250 ml @ 50 mls/hr Q5H IV 08/06/24 01:45 08/06/24 10:01 50 MLS/HR Sodium Chloride 10 ml Q8HR IV 08/06/24 06:00 08/06/24 14:00 10 ML Enoxaparin Sodium 40 mg DAILY SC 08/06/24 10:00 08/06/24 10:16 40 MG Acetaminophen 650 mg Q6HP PRN PO 08/06/24 01:45 08/06/24 18:52 650 MG Nitroglycerin 0.4 mg Q5MINP PRN SL 08/06/24 01:45 Morphine Sulfate 2 mg Q30M PRN IV 08/06/24 01:45 Examination General examination- awake, alert, oriented, conversive HEENT- PEERLA, no acute nasal discharge Cardiovascular- S1-S2 audible, rate and rhythm regular, no murmur Respiratory- CTAB, no wheeze or rhonchi Gastrointestinal-nontender, bowel sound+. Nondistended Musculoskeletal-no acute joint swelling or tenderness or redness# Lower extremity- + leg edema Neurological- cranial nerves intact, no acute dysarthria or dysphagia Psychiatry- denies depression or SI or HI Skin- no acute rash or purpura laboratory and microbiology Laboratory Tests 08/06/24 18:47 08/06/24 05:01 Test 08/06/24 05:01 Range/Units Serum Glucose 117 H 74-106 mg/dL Problem List/Assessment/Plan Problem List/Assessment/Plan Acute hypoxic respiratory failure likely due to acute pulmonary edema Pulmonary edema likely due to hypertensive emergency Non STEMI likely type 2 due to substance abuse Substance abuse amphetamine Bilateral leg edema likely due to acute heart failure Hypertensive emergency Hypokalemia replenished Prediabetes Asthma Eczema Plan Continue Lasix 40 mg b.i.d. Continue Lovenox 40 mg subcutaneously daily Continue other medications as prescribed Pending acute 2D report Pending echo 2D report Goals of care/advance care planning; FULL CODE; discussed with the patient >15 minutes PUD prophylaxis: DVT prophylaxis: Lovenox Plan discussed with Dr. Mark , nursing staff, patient Total time spent on patient evaluation, chart review, assessment and plan, discussion discussion >31 minutes Plan discussed with: Patient Plan discussed with: Patient, Other (Mother, RN) My Orders My Orders Orders - SUSAN MILTON Procedure Category Date Status Time * [employer] CONS 08/06/24 Transmitted Consult 15:26 Date of Service: Aug 06, 2024 Billing Provider: SUSANA ROSALES MD Common Visit Codes: [id number] INP/OBS CARE(HIGH) SUSAN MILTON Aug 06, 2024 20:35 SUSANA ROSALES MD Aug 06, 2024 23:50
[2024-08-06] MEDS: dilTIAZem 120MG ER CAP PO ONE (20:45)
[2024-08-07] VITALS (9 sets, daily range): BP systolic 131–165; BP diastolic 61–117; PULSE 95–119; RESP 16–20; TEMP 98–98.8; O2SAT 96–99
[2024-08-07] MEDS ORDERED: AMOX250C3 PO (05:04)
[2024-08-07] MEDS ORDERED: LOSA-533 PO (05:04)
[2024-08-07 06:58] LABS: Basophils # (auto) 0 10 ^3/uL (0-0.2); Basophils % (auto) 0.5 % (0.0-2.0); Eosinophils # (auto) 0.2 10 ^3/uL (0-0.8); Eosinophils % (auto) 3.1 % (0.0-7.0); Hemoglobin 15.7 g/dL (13.5-17.5); Lymphocytes # (auto) 1.6 10 ^3/uL (0.4-5.4); Lymphocytes % (auto) 20.4 % (10.0-50.0); Mean Corpuscular Hemoglobin 27.5 pg (28.0-32.0); Mean Corpuscular Hgb Conc. 32.8 g/dL (32.0-36.0); Monocytes # (auto) 0.8 10 ^3/uL (0-1.3); Monocytes % (auto) 10.8 % (0.0-12.0); Neutrophils % (auto) 65.2 % (37.0-80.0); Nucleated Red Blood Cells % 0.1 %; Platelet Count (auto) 233 10^3/uL (140-450); Red Blood Cells 5.71 10^6/uL (4.5-5.90); Red Cell Distribution Width 16.5 % (11.8-14.3); White Blood Cell 7.6 10^3/uL (4.4-10.8)
[2024-08-07 07:16] LABS: Anion Gap 12 (5-15); Carbon Dioxide 28 mmol/L (20-31); Chloride 98 mmol/L (98-107); Sodium 138 mmol/L (136-145)
[2024-08-07 07:22] LABS: BUN/Creatinine Ratio 13.4 (10.0-20.0); Blood Urea Nitrogen 16 mg/dL (9-23); Glucose 101 mg/dL (74-106)
[2024-08-07 07:23] LABS: Magnesium 1.9 mg/dL (1.6-2.6)
[2024-08-07 07:24] LABS: Potassium 3.4 mmol/L (3.5-5.1)
[2024-08-07] MEDS: dilTIAZem 120MG ER CAP PO SCH (08:35)
[2024-08-07] MEDS: NIFEdipine ER 30 MG TAB PO ONE (10:18)
[2024-08-07] MEDS: POTASSIUM CHL 20 Meq TABLET PO ONE ×3 (10:18→15:07)
[2024-08-07] MEDS: LOSARTAN POTASSIUM 50 MG TAB PO ONE (10:18)
--- NOTE | 2024-08-07 14:20 | DVHCONRES ---
Date Seen: Aug 07, 2024 Resident Creating Document: ZAYRA BEDOLLA RESIDENT Referring Physician Dr. Martinez, resident Reason for Consultation CHF History of Present Illness This is a 39-year-old male who comes into the ED with chief complain of lower extremity edema. He has a past medical history relevant for hypertension, asthma, eczema. Denies any surgical history. Social history: States being using methamphetamine on a daily basis for the last 10 years, last time he used was two weeks ago. Denies alcohol or nicotine use. Family history: Patient stated that his mother has hypertension, grandfather had heart failure. Home medications: Losartan 50 mg p.o. q.d., albuterol inhaler Patient states that for the last four days he has been experiencing worsening lower extremity edema, he stated that for last one week he has been having difficulty sleeping, stated that he uses up to 10 pillows, he has difficulty lying flat due to shortness of breath. He also states having mild dry cough, denies any chest pain, dizziness, lightheadedness, abdominal pain, fevers, chills. On patient arrival to the ED, he was noted to be hypertensive, he was initiated on clonidine 0.2 mg p.o. once, his initial blood pressure was 194/170, he was tachycardic, on room air, CBC was unremarkable, BNP was 600, troponins were 90- 95 -94, TSH was within normal limits, was noted to be mild hypokalemic, A1c was 6%. UDS Showed methamphetamine positive. A D-dimer was elevated, a lower extremity Doppler ruled out DVT. A chest x-ray demonstrated mild vascular congestion, cardiomegaly. EKG shows a rate of 122, sinus tachycardia, right axis deviation, LVH, prolonged QT interval, no ST-T wave changes Patient was also started on nicardipine drip and was later held after achieving a blood pressure of 150 over 80, patient was also started on Lasix 40 mg IV b.i.d., losartan 50 mg p.o. q.d., he was started on DVT prophylaxis. Today the patient's blood pressure raise again to 170 over 117, she was given an extra dose of losartan 50 mg, he was started on nifedipine 60 mg, and was given a dose of diltiazem 60 mg p.o. On my assessment, patient states feeling well denied any chest pain, shortness of breath, dizziness, lightheadedness, he stated that the leg swelling has gotten significantly better he is only complaining of recurrent muscle spasms. Allergies: Coded Allergies: No Known Drug Allergy (Verified Allergy, Unknown, 05/27/21) Home Meds Reported Medications Triamcinolone Acetonide (Triamcinolone Acetonide) 0.5 % Cre, 1 APPLIC TOP TIDP, APPLIC 08/07/24 Amoxicillin Trihydrate (Amoxicillin) 250 Mg Cap, 250 MG PO Q8HR, MG 08/07/24 Losartan Potassium (Losartan Potassium) 25 Mg Tab, 25 MG PO DAILY for 30 Days, MG 08/07/24 Current Medications Current Medications Medications (Trade) Dose Ordered Sig/Nathan Route PRN Reason Start Time Stop Time Status Last Admin Diltiazem HCl (Cardizem ER Capsule) 60 mg DAILY PO 08/07/24 10:00 08/07/24 09:56 DC 08/07/24 08:35 Nifedipine (Procardia Xl (Time-Release)) 60 mg DAILY PO 08/08/24 10:00 Furosemide (Lasix Injection) 20 mg BID IV 08/07/24 22:00 UNV Review of Systems Constitutional: Patient denies fevers, chills, sweats and weight changes. Eyes: Patient denies any visual symptoms. Ears, Nose, and Throat: No difficulties with hearing. No symptoms of rhinitis or sore throat. Cardiovascular: Patient denies chest pains, palpitations, orthopnea and paroxysmal nocturnal dyspnea. Respiratory: No dyspnea on exertion, no wheezing or cough. GI: No nausea, vomiting, diarrhea, constipation, abdominal pain, hematochezia or melena. : No urinary hesitancy or dribbling. No nocturia or urinary frequency. No abnormal urethral discharge. Musculoskeletal: Muscle spasms Neurologic: No chronic headaches, no seizures. Patient denies numbness, tingling or weakness. Psychiatric: Patient denies problems with mood disturbance. No problems with anxiety. Endocrine: No excessive urination or excessive thirst. Dermatologic: Patient denies any rashes or skin changes. Vital Signs Vital Signs Date Time Temp Pulse Resp B/P (MAP) Pulse Ox O2 Delivery O2 Flow Rate FiO2 08/07/24 12:31 98.0 101 16 154/105 (121) 98 98.0 08/07/24 08:05 Room Air* 0 21 Physical Exam General: Awake, alert, comfortable appearing, in no acute distress. HEENT: Head is normocephalic and atraumatic. Pupils are equal, round, and reactive to light. Extraocular muscles are intact. No nasal discharge. No facial trauma. Intraoral exam shows moist mucous membranes with no tonsillar enlargement or exudate. Neck: Supple with no cervical lymphadenopathy No meningismus. No goiter. Heart: Regular rate without murmur, rub, or gallop. Lungs: Scattered crackles Abdomen: No external sign of injury. Bowel sounds are present. Abdomen is soft, nontender. No rebound, no guarding, no rigidity. There are no palpable masses. There is no flank pain on exam. Extremities: Strong peripheral pulses. There is no clubbing, no cyanosis, and no edema. Skin: No rash. Neurologic: Cranial nerves II-XII intact without motor, sensory, or cerebellar deficit, no asterixis. Labs/Diagnostic Data Labs Test 08/07/24 05:35 08/06/24 05:01 08/06/24 04:15 08/06/24 02:53 Range/Units White Blood Count 7.6 # 4.4-10.8 10^3/uL Red Blood Count 5.71 4.5-5.90 10^6/uL Hemoglobin 15.7 # 13.5-17.5 g/dL Hematocrit 48.0 # 41.0-53.0 % Mean Corpuscular Volume 84.0 80.0-100.0 fL Mean Corpuscular Hemoglobin 27.5 L 28.0-32.0 pg Mean Corpuscular Hemoglobin Concent 32.8 32.0-36.0 g/dL Red Cell Distribution Width 16.5 H 11.8-14.3 % Platelet Count 233 140-450 10^3/uL Mean Platelet Volume 7.8 6.9-10.8 fL Neutrophils (%) (Auto) 65.2 37.0-80.0 % Lymphocytes (%) (Auto) 20.4 10.0-50.0 % Monocytes (%) (Auto) 10.8 0.0-12.0 % Eosinophils (%) (Auto) 3.1 0.0-7.0 % Basophils (%) (Auto) 0.5 0.0-2.0 % Neutrophils # (Auto) 5.0 1.6-8.6 10 ^3/uL Lymphocytes # (Auto) 1.6 0.4-5.4 10 ^3/uL Monocytes # (Auto) 0.8 0-1.3 10 ^3/uL Eosinophils # (Auto) 0.2 0-0.8 10 ^3/uL Basophils # (Auto) 0 0-0.2 10 ^3/uL Nucleated Red Blood Cells 0.1 % Sodium Level 138 136-145 mmol/L Potassium Level 3.4 L 3.5-5.1 mmol/L Chloride Level 98 98-107 mmol/L Carbon Dioxide Level 28 20-31 mmol/L Anion Gap 12 5-15 Blood Urea Nitrogen 16 9-23 mg/dL Creatinine 1.19 0.700-1.30 mg/dL Glomerular Filtration Rate Calc 80 >90 mL/min BUN/Creatinine Ratio 13.4 10.0-20.0 Serum Glucose 101 74-106 mg/dL Calcium Level 10.0 8.7-10.4 mg/dL Magnesium Level 1.9 1.6-2.6 mg/dL Total Bilirubin 1.6 H 0.2-1.0 mg/dL Aspartate Amino Transferase (AST) 40 13-40 U/L Alanine Aminotransferase (ALT) 43 H 7-40 U/L Alkaline Phosphatase 94 46-116 U/L Total Protein 7.4 5.7-8.2 g/dL Albumin 4.4 3.2-4.8 g/dL Influenza Type A Antigen Negative Negative Influenza Type B Antigen Negative Negative SARS-CoV-2 Antigen (Rapid) Negative NEGATIVE Urine Color Light-yellow Yellow Urine Clarity Clear Clear Urine pH 5.5 5.0-9.0 Urine Specific [place] 1.014 1.001-1.035 Urine Protein 1+ H Negative Urine Ketones Negative Negative Urine Blood Negative Negative /uL Urine Nitrite Negative Negative Urine Bilirubin Negative Negative Urine Urobilinogen Normal Negative mg/dL Urine Leukocyte Esterase Negative Negative /uL Urine RBC 1 0 - 3 /hpf Urine Microscopic WBC 1 0-3 /HPF Urine Squamous Epithelial Cells Few <5 /hpf Urine Bacteria None seen None Seen /hpf Urine Mucus Few None Seen Urine Sperm Present None Seen /hpf Urine Glucose Normal Normal mg/dL Urine Opiates Screen Neg NEGATIVE Urine Fentanyl Screen Neg NEGATIVE Urine Barbiturates Screen Neg NEGATIVE Urine Phencyclidine Screen Neg NEGATIVE Urine Amphetamines Screen Pos NEGATIVE Urine Benzodiazepines Screen Neg NEGATIVE Urine Cocaine Screen Neg NEGATIVE Urine Cannabinoids Screen Neg NEGATIVE Test 08/06/24 02:04 08/05/24 23:08 Range/Units Prothrombin Time 11.6 9.3-11.8 sec Prothrombin Time INR 1.11 0.9-1.15 Activated Partial Thromboplast Time 26.8 24.5-34.5 SEC D-Dimer, Quantitative 0.58 H 0.0-0.49 mg/L FEU Hemoglobin A1c 6.0 H <5.7 % A1C Direct Bilirubin 0.5 H <0.3 mg/dL Troponin I High Sensitivity 94 *H </=54 ng/L Triglycerides Level 80 < 150 mg/dL Cholesterol Level 156 < 200 mg/dL LDL Cholesterol 97 < 100 mg/dL HDL Cholesterol 45 40-59 mg/dL Thyroid Stimulating Hormone (TSH) 1.35 0.55-4.78 uIU/mL Plasma/Serum Blood Alcohol < 3.0 <10 mg/dL B-Type Natriuretic Peptide 595.87 0-100 pg/mL Assessment Hypertensive emergency Acute systolic/diastolic CHF, NYHA class 1 Pulmonary hypertension, likely class 5 NSTEMI likely type 2 due to above Drug induced cardiomyopathy Hypertensive heart disease Methamphetamine abuse Prediabetes Obesity Asthma, controlled Eczema Plan/Recommendation Pending echocardiogram, shows EF 55%, RV pressure overload, pulmonary hypertension findings, RSVP 57mmHg, this is likely a pulmonary hypertension class 5 Ordered V/Q scan to rule venoocclusive disease, chronic thromboembolism. Continue losartan 50mg p.o. q.d. Started Coreg 6.25mg po bid Continue nifedipine 60 mg p.o. q.d. Reduce Lasix 20 mg IV b.i.d. Maintain potassium above 4 and magnesium above 2 Continue GDMT: ARB, Jardiance, Coreg We recommend aggressive treatment of systemic hypertension, with avoidance of nitrates, patient shall continue blood pressure monitoring for next 6 weeks, and undergo right and left heart cath afterwards. Case was discussed with Dr. Carreno Plan discussed with: Patient ZAYRA BEDOLLA RESIDENT Aug 07, 2024 14:20
[2024-08-07] MEDS: FUROSEMIDE 40 MG/4 ML VIAL IV ONE (15:05)
[2024-08-07] MEDS: SPIRONOLACTONE 25 MG TAB PO ONE (15:05)
--- NOTE | 2024-08-07 16:21 | DVHPNRES ---
Progress Note Date Seen: Aug 07, 2024 Resident Creating Document: SUSAN MILTON RESIDENT Medical Necessity Reason Pt with a Central, PICC or Fol: No Subjective Review of Systems Familia Raza is a 39-year-old male with a PMH of hypertension, asthma, eczema presented to the ED with the chief complaints of lower extremity edema since day prior to admission. Patient reported per past 1 week patient has been having difficulty in sleeping due to shortness of breath while lying down, orthopnea and PND associated with mild dry cough and he observed lower extremity swelling yesterday which is not has been improved which prompted him to visit ED. patient reported he has been diagnosed with a hypertension for 5 years and has been taking losartan 50 mg and his blood pressure is always in 180s. On my assessment patient denies headache, dizziness, nausea, vomiting, palpitations, chest pain, diaphoresis, and other acute associated symptoms. Significant lab workup revealed potassium 3.3, bilirubin 1.6, troponin 90, BNP 595, UDS positive for amphetamine. PMH: HTN since 5 years, asthma since childhood, eczema PSH: Denies Family history: Hypertension in mother, maternal uncle and grandfather have heart failure Social history: Lives with family. Methamphetamine abuser quit 2 weeks ago but denies smoking alcohol and other illicit drug abuse Allergies: No known allergies Home medications: Losartan 50 mg, albuterol inhaler, triamcinolone cream Patient was seen today at the bedside. Cardiovascular- deny acute palpitation Respiratory denies wheezing Gastrointestinal- denies any rectal bleeding, nausea or vomiting Musculoskeletal-denies acute joint swelling or tenderness or redness Neurological- denies acute dysarthria, dysphagia, change in vision Psychiatry- denies depression or SI or HI Skin- denies acute rash or purpura Patient was seen today for clinical evaluation. Labs and chart reviewed. Patient is leg edema and shortness of breaths has improved significantly. Pending cardiology consult. Patient was started on Procardia ER 60 mg p.o. daily. Cardiology recommended spironolactone 25 mg p.o. daily and Jardiance 10 mg p.o. daily. Objective vital signs Vital Sign Date Time Temp Pulse Resp B/P (MAP) Pulse Ox O2 Delivery O2 Flow Rate FiO2 08/07/24 15:05 150/100 08/07/24 12:31 98.0 101 16 98 98.0 08/07/24 08:05 Room Air* 0 21 Total Intake and Output 08/06/24 08/06/24 08/07/24 15:00 23:00 07:00 Intake Total 250 ml 720 ml 450 ml Output Total 4550 ml 1300 ml Balance 250 ml -3830 ml -850 ml medications Current Medications Medications Dose Ordered Sig/Nathan Route Start Time Stop Time Status Last Admin Dose Admin Losartan Potassium 50 mg DAILY PO 08/06/24 10:00 08/07/24 06:01 50 MG Nicardipine HCl 250 ml @ 50 mls/hr Q5H IV 08/06/24 01:45 08/06/24 10:01 50 MLS/HR Sodium Chloride 10 ml Q8HR IV 08/06/24 06:00 08/07/24 14:53 10 ML Enoxaparin Sodium 40 mg DAILY SC 08/06/24 10:00 08/07/24 08:35 40 MG Acetaminophen 650 mg Q6HP PRN PO 08/06/24 01:45 08/07/24 04:17 650 MG Nitroglycerin 0.4 mg Q5MINP PRN SL 08/06/24 01:45 Morphine Sulfate 2 mg Q30M PRN IV 08/06/24 01:45 Nifedipine 60 mg DAILY PO 08/08/24 10:00 Furosemide 20 mg BID IV 08/07/24 22:00 Empaglifozin 10 mg DAILY PO 08/08/24 10:00 Spironolactone 25 mg DAILY PO 08/08/24 10:00 Examination General examination- awake, alert, oriented, conversive HEENT- PEERLA, no acute nasal discharge Cardiovascular- S1-S2 audible, rate and rhythm regular, no murmur Respiratory- CTAB, no wheeze or rhonchi Gastrointestinal-nontender, bowel sound+. Nondistended Musculoskeletal-no acute joint swelling or tenderness or redness# Lower extremity-bilateral leg edema improved, minimally present Neurological- cranial nerves intact, no acute dysarthria or dysphagia Psychiatry- denies depression or SI or HI Skin- no acute rash or purpura laboratory and microbiology Laboratory Tests 08/07/24 05:35 Test 08/07/24 05:35 Range/Units Serum Glucose 101 74-106 mg/dL Problem List/Assessment/Plan Problem List/Assessment/Plan Assessment Acute hypoxic respiratory failure likely due to acute pulmonary edema Pulmonary edema likely due to hypertensive emergency Non STEMI likely type 2 due to substance abuse Substance abuse amphetamine Bilateral leg edema likely due to acute heart failure Hypertensive emergency Hypokalemia replenished Prediabetes Asthma Eczema Plan Continue Lasix 40 mg b.i.d. Continue Lovenox 40 mg subcutaneously daily Spironolactone 25 mg p.o. daily Jardiance 10 mg p.o. daily Continue other medications as prescribed Pending echo 2D report Goals of care/advance care planning; FULL CODE; discussed with the patient >15 minutes PUD prophylaxis: DVT prophylaxis: Lovenox Plan discussed with Dr. Mark , nursing staff, patient Total time spent on patient evaluation, chart review, assessment and plan, discussion discussion >31 minutes Plan discussed with: Patient Plan discussed with: Patient, Other (RN) My Orders My Orders Orders - SUSAN MILTON Procedure Category Date Status Time [facility] Er PHA 08/08/24 In Process (Procardia Xl 10:00 Communication Order ORDERS 08/07/24 Transmitted 11:[address] *[address] Coombs CONS 08/07/24 Transmitted 11:46 SUSAN MILTON Aug 07, 2024 16:21
--- NOTE | 2024-08-07 19:55 | DVHSR ---
APPROVED REPORT EXAM: Two-dimensional and M-mode echocardiogram with Doppler and color Doppler. Blood Pressure: 133/79 mmHg INDICATION ? CHF RISK FACTORS Obesity: Height: 6'3, Weight: 271 DIMENSIONS LVDd5.2 (3.8-5.7cm)LA (2D)5.4 (1.9-4.0cm)Aortic Root4.0 (2.0-3.7cm) LVDs3.7 (2.5-4.0cm)LA (MM) (1.9-4.0cm)Aortic Cusp Exc2.2 (1.5-2.0cm) EF (%) 60.0 (55-70%)Rt. Atrium5.9 (1.9-4.0cm)Asc. Aorta3.5 cm IVSd1.3 (0.7-1.1cm)RV (D)6.7 (1.8-2.4cm) PWd1.7 (0.7-1.1cm) Mitral Valve MitralMitral Stenosis E/A ratio0.02D MVAcm2 Aortic Valve Aortic ValveAortic Stenosis V11.35m/Miller Mean GR.7mmHg V21.60m/Miller Peak GR.10mmHg LVOT Diameter2.7 (1.8-2.4cm)Doppler AVA4.83cm2 Pulmonic Valve V21.19m/s Tricuspid Valve TR Velocity3.05m/s [id number] Conclusion Technically good study. Sinus rhythm. Biatrial enlargement. Biventricular enlargement. Aortic root dilatation. Concentric LVH. Mild aortic sclerosis. The mitral and pulmonic valves appear to be structurally normal. The tricusp id appears to be structurally normal. Left ventricular function is preserved at 55-60% with normal RV function. Moderate tricuspid regurgitation. Pulmonary hypertension with pulmonary pressures near 60 mmHg. Mil d pulmonic insufficiency. No pericardial effusion masses or vegetations discernible.
[2024-08-07] MEDS: CARVEDILOL 3.125 MG TAB PO SCH (21:58)
[2024-08-07] MEDS: FUROSEMIDE 40 MG/4 ML VIAL IV SCH (21:59)
[2024-08-07] MEDS ORDERED: TRIA0.5C TOP (22:04)
[2024-08-08 01:00] VITALS: BP 130/80; PULSE 110; RESP 19; TEMP 98.5; O2SAT 98
[2024-08-08 05:00] VITALS: BP 120/82; PULSE 110; RESP 18; TEMP 98.9; O2SAT 94
[2024-08-08 06:39] LABS: Calcium 10.1 mg/dL (8.7-10.4); Potassium 3.8 mmol/L (3.5-5.1); Sodium 136 mmol/L (136-145)
[2024-08-08 06:40] LABS: Anion Gap 11 (5-15); Carbon Dioxide 27 mmol/L (20-31)
[2024-08-08 06:42] LABS: Chloride 98 mmol/L (98-107)
[2024-08-08 06:45] LABS: BUN/Creatinine Ratio 14.3 (10.0-20.0); Blood Urea Nitrogen 19 mg/dL (9-23); Glucose 95 mg/dL (74-106)
[2024-08-08 06:46] LABS: Magnesium 2.1 mg/dL (1.6-2.6)
[2024-08-08 08:00] VITALS: PULSE 101
[2024-08-08 09:00] VITALS: BP 131/86; PULSE 107; RESP 18; TEMP 98.1; O2SAT 96
--- NOTE | 2024-08-08 09:19 | DVHDSRES ---
Discharge Summary Date of Admission Resident Creating Document: SUSAN MILTON RESIDENT Aug 06, 2024 at 01:41 Date of Discharge: Aug 08, 2024 Admitting Diagnosis Acute hypoxic respiratory failure, hypertensive emergency Labs/Diagnostic Data: Laboratory Results Test 08/08/24 05:06 08/07/24 05:35 08/06/24 05:01 08/06/24 04:15 Sodium Level 136 mmol/L (136-145) Potassium Level 3.8 mmol/L (3.5-5.1) Chloride Level 98 mmol/L (98-107) Carbon Dioxide Level 27 mmol/L (20-31) Anion Gap 11 (5-15) Blood Urea Nitrogen 19 mg/dL (9-23) Creatinine 1.33 mg/dL (0.700-1.30) Glomerular Filtration Rate Calc 70 mL/min (>90) BUN/Creatinine Ratio 14.3 (10.0-20.0) Serum Glucose 95 mg/dL (74-106) Calcium Level 10.1 mg/dL (8.7-10.4) Magnesium Level 2.1 mg/dL (1.6-2.6) White Blood Count 7.6 10^3/uL (4.4-10.8) Red Blood Count 5.71 10^6/uL (4.5-5.90) Hemoglobin 15.7 g/dL (13.5-17.5) Hematocrit 48.0 % (41.0-53.0) Mean Corpuscular Volume 84.0 fL (80.0-100.0) Mean Corpuscular Hemoglobin 27.5 pg (28.0-32.0) Mean Corpuscular Hemoglobin Concent 32.8 g/dL (32.0-36.0) Red Cell Distribution Width 16.5 % (11.8-14.3) Platelet Count 233 10^3/uL (140-450) Mean Platelet Volume 7.8 fL (6.9-10.8) Neutrophils (%) (Auto) 65.2 % (37.0-80.0) Lymphocytes (%) (Auto) 20.4 % (10.0-50.0) Monocytes (%) (Auto) 10.8 % (0.0-12.0) Eosinophils (%) (Auto) 3.1 % (0.0-7.0) Basophils (%) (Auto) 0.5 % (0.0-2.0) Neutrophils # (Auto) 5.0 10 ^3/uL (1.6-8.6) Lymphocytes # (Auto) 1.6 10 ^3/uL (0.4-5.4) Monocytes # (Auto) 0.8 10 ^3/uL (0-1.3) Eosinophils # (Auto) 0.2 10 ^3/uL (0-0.8) Basophils # (Auto) 0 10 ^3/uL (0-0.2) Nucleated Red Blood Cells 0.1 % Total Bilirubin 1.6 mg/dL (0.2-1.0) Aspartate Amino Transferase (AST) 40 U/L (13-40) Alanine Aminotransferase (ALT) 43 U/L (7-40) Alkaline Phosphatase 94 U/L (46-116) Total Protein 7.4 g/dL (5.7-8.2) Albumin 4.4 g/dL (3.2-4.8) Influenza Type A Antigen Negative (Negative) Influenza Type B Antigen Negative (Negative) SARS-CoV-2 Antigen (Rapid) Negative (NEGATIVE) Test 08/06/24 02:53 08/06/24 02:04 08/05/24 23:08 Urine Color Light-yellow (Yellow) Urine Clarity Clear (Clear) Urine pH 5.5 (5.0-9.0) Urine Specific [place] 1.014 (1.001-1.035) Urine Protein 1+ (Negative) Urine Ketones Negative (Negative) Urine Blood Negative /uL (Negative) Urine Nitrite Negative (Negative) Urine Bilirubin Negative (Negative) Urine Urobilinogen Normal mg/dL (Negative) Urine Leukocyte Esterase Negative /uL (Negative) Urine RBC 1 /hpf (0 - 3) Urine Microscopic WBC 1 /HPF (0-3) Urine Squamous Epithelial Cells Few /hpf (<5) Urine Bacteria None seen /hpf (None Seen) Urine Mucus Few (None Seen) Urine Sperm Present /hpf (None Seen) Urine Glucose Normal mg/dL (Normal) Urine Opiates Screen Neg (NEGATIVE) Urine Fentanyl Screen Neg (NEGATIVE) Urine Barbiturates Screen Neg (NEGATIVE) Urine Phencyclidine Screen Neg (NEGATIVE) Urine Amphetamines Screen Pos (NEGATIVE) Urine Benzodiazepines Screen Neg (NEGATIVE) Urine Cocaine Screen Neg (NEGATIVE) Urine Cannabinoids Screen Neg (NEGATIVE) Prothrombin Time 11.6 sec (9.3-11.8) Prothrombin Time INR 1.11 (0.9-1.15) Activated Partial Thromboplast Time 26.8 SEC (24.5-34.5) D-Dimer, Quantitative 0.58 mg/L FEU (0.0-0.49) Hemoglobin A1c 6.0 % A1C (<5.7) Direct Bilirubin 0.5 mg/dL (<0.3) Troponin I High Sensitivity 94 ng/L (</=54) Triglycerides Level 80 mg/dL (< 150) Cholesterol Level 156 mg/dL (< 200) LDL Cholesterol 97 mg/dL (< 100) HDL Cholesterol 45 mg/dL (40-59) Thyroid Stimulating Hormone (TSH) 1.35 uIU/mL (0.55-4.78) Plasma/Serum Blood Alcohol < 3.0 mg/dL (<10) B-Type Natriuretic Peptide 595.87 pg/mL (0-100) Other Laboratory Tests 08/08/24 05:06 08/07/24 05:35 Brief Hx & Hospital Course: Loren Hughes is a 39-year-old male with a PMH of hypertension, asthma, eczema presented to the ED with the chief complaints of lower extremity edema since day prior to admission. Patient reported per past 1 week patient has been having difficulty in sleeping due to shortness of breath while lying down, orthopnea and PND associated with mild dry cough and he observed lower extremity swelling yesterday which is not has been improved which prompted him to visit ED. patient reported he has been diagnosed with a hypertension for 5 years and has been taking losartan 50 mg and his blood pressure is always in 180s. On my assessment patient denies headache, dizziness, nausea, vomiting, palpitations, chest pain, diaphoresis, and other acute associated symptoms. Significant lab workup revealed potassium 3.3, bilirubin 1.6, troponin 90, BNP 595, UDS positive for amphetamine. Echo 2D revealed-Biatrial enlargement. Biventricular enlargement. Aortic root dilatation. Concentric LVH. Mild aortic sclerosis. The mitral and pulmonic valves appear to be structurally normal. The tricuspid appears to be structurally normal.Left ventricular function is preserved at 55- 60% with normal RV function. Moderate tricuspid regurgitation. Pulmonary hypertension with pulmonary pressures near 60 mmHg. Mild pulmonic insufficiency. No pericardial effusion masses or vegetations discernible. CXR revealed no acute disease. Doppler study of the lower extremity negative for DVT. Ventilation perfusion scanning-low probability for PE. Hospital course-patient came to the hospital due to shortness of breaths and leg edema. Patient was admitted to the hospital due to acute hypoxic respiratory failure due to pulmonary edema and hypertensive emergency.Significant lab workup revealed potassium 3.3, bilirubin 1.6, troponin 90, BNP 595, UDS positive for amphetamine. Echo 2D revealed-Biatrial enlargement. Biventricular enlargement. Aortic root dilatation. Concentric LVH. Mild aortic sclerosis. The mitral and pulmonic valves appear to be structurally normal. The tricuspid appears to be structurally normal.Left ventricular function is preserved at 55-60% with normal RV function. Moderate tricuspid regurgitation. Pulmonary hypertension with pulmonary pressures near 60 mmHg. Mild pulmonic insufficiency. No pericardial effusion masses or vegetations discernible. CXR revealed no acute disease. Doppler study of the lower extremity negative for DVT. Ventilation perfusion scanning-low probability for PE. During hospitalization patient's symptoms improved gradually. Patient left AMA. Patient's condition was undetermined on discharge. Diagnosis Acute hypoxic respiratory failure likely due to acute pulmonary edema Pulmonary edema likely due to hypertensive emergency Non STEMI likely type 2 due to substance abuse Substance abuse amphetamine Bilateral leg edema likely due to acute heart failure Hypertensive emergency Biventricular enlargement. Aortic root dilatation. Concentric LVH. Moderate tricuspid regurgitation. Mild aortic sclerosis. Hypokalemia replenished Prediabetes Asthma Eczema Discharge plan Patient left AMA Operations or Procedures [place] [id number] Ph: [phone] DIAGNOSTIC IMAGING Diagnostic Imaging Report : [id number] Signed PATIENT: LOREN VALDES ACCT: [id number] UNIT: [id number] : 1985 LOC: ER ROOM / BED: / AGE / SEX: 39 / M ADM STATUS: REG ER SERVICE 0019 ORDERING PHYSICIAN: CODY REDDING PROCEDURE(s): CXR1 - CHEST XRAY 1 VIEW REASON: sob ORDER NUMBER(s): [id number], ACCESSION NUMBER(s): [id number] CHEST RADIOGRAPH Indication: sob Technique: Single frontal view of the chest was obtained COMPARISON: None FINDINGS: Lines and Tubes: None Lungs: Clear Pleura: No effusion. No pneumothorax. Cardiomediastinal contours: Mild cardiomegaly Bones: Unremarkable IMPRESSION: 1. No acute disease. ATED BY: SHAY DUMONT MD DICTATED DATE/TIME: 08/06/2449 SIGNED BY: SHAY DUMONT MD SIGNED DATE/TIME: 08/06/2449 CC: [place] [id number] Ph: [phone] DIAGNOSTIC IMAGING Diagnostic Imaging Report : [id number] Signed PATIENT: LOREN VALDES ACCT: [id number] UNIT: [id number] : 1985 LOC: OVERFLOW ROOM / BED: [address] [place] [address] AGE / SEX: 39 / M ADM STATUS: ADM IN SERVICE 5 ORDERING PHYSICIAN: SATNAM HEIN RESIDENT PROCEDURE(s): BLDVT - BiLat Lower DVT REASON: r/o vte ORDER NUMBER(s): [id number], ACCESSION NUMBER(s): [id number] Examination: BLDVT CLINICAL INDICATION: rule out VTE COMPARISON: None. TECHNIQUE: Using real-time ultrasonic imaging and color Doppler the deep venous system of both lower extremities was studied from the level of the common femoral veins to the posterior tibial veins. FINDINGS: Ultrasound examination of bilateral common femoral veins, bilateral deep femoral veins, the proximal, middle and distal segments of bilateral superficial femoral veins, bilateral popliteal veins, and bilateral posterior tibial veins reveal normal phasicity and compression and augmentation. No thrombus was visualized. IMPRESSION: There is no evidence of deep venous thrombosis in bilateral lower extremity venous systems. Electronically Signed 08/06/2024 03:48 Denise Grace ATED BY: NAOMI TALLEY MD DICTATED DATE/TIME: 08/06/24347 SIGNED BY: NAOMI TALLEY MD SIGNED DATE/TIME: 08/06/24347 CC: [place] [id number] Ph: [phone] DIAGNOSTIC IMAGING Diagnostic Imaging Report : [id number] Signed PATIENT: LOREN VALDES ACCT: [id number] UNIT: [id number] : 1985 LOC: [facility] ROOM / BED: 0270T / B AGE / SEX: 39 / M ADM STATUS: ADM IN SERVICE 0141 ORDERING PHYSICIAN: SATNAM HEIN PROCEDURE(s): ECIDC - ECHO 2D MODE CARDIAC DOP REASON: ? CHF ORDER NUMBER(s): [id number], ACCESSION NUMBER(s): [id number] APPROVED REPORT EXAM: Two-dimensional and M-mode echocardiogram with Doppler and color Doppler. Blood Pressure: 133/79 mmHg INDICATION ? CHF RISK FACTORS Obesity: Height: 6'3, Weight: 271 DIMENSIONS LVDd 5.2 (3.8-5.7cm) LA (2D) 5.4 (1.9-4.0cm) Aortic Root 4.0 (2.0- 3.7cm) LVDs 3.7 (2.5-4.0cm) LA (MM) (1.9-4.0cm) Aortic Cusp Exc 2.2 (1.5- 2.0cm) EF (%) 60.0 (55-70%) Rt. Atrium 5.9 (1.9-4.0cm) Asc. Aorta 3.5 cm IVSd 1.3 (0.7-1.1cm) RV (D) 6.7 (1.8-2.4cm) PWd 1.7 (0.7-1.1cm) Mitral Valve Mitral Mitral Stenosis E/A ratio 0.0 2D MVA cm2 Aortic Valve Aortic Valve Aortic Stenosis V1 1.35m/s AO Mean GR. 7mmHg V2 1.60m/s AO Peak GR. 10mmHg LVOT Diameter 2.7 (1.8-2.4cm) Doppler TAWNY 4.83cm2 Pulmonic Valve V2 1.19m/s Tricuspid Valve TR Velocity 3.05m/s RVSP 57mmHg Conclusion Technically good study. Sinus rhythm. Biatrial enlargement. Biventricular enlargement. Aortic root dilatation. Concentric LVH. Mild aortic sclerosis. The mitral and pulmonic valves appear to be structurally normal. The tricuspid appears to be structurally normal. Left ventricular function is preserved at 55-60% with normal RV function. Moderate tricuspid regurgitation. Pulmonary hypertension with pulmonary pressures near 60 mmHg. Mild pulmonic insufficiency. No pericardial effusion masses or vegetations discernible. SIGNED BY: CHON GRECO Sr., MD SIGNED DATE/TIME: 08/07/241954 CC: Condition at Discharge: Stable Final Diagnosis/Problems List Acute hypoxic respiratory failure likely due to acute pulmonary edema Pulmonary edema likely due to hypertensive emergency Non STEMI likely type 2 due to substance abuse Substance abuse amphetamine Bilateral leg edema likely due to acute heart failure Hypertensive emergency Biventricular enlargement. Aortic root dilatation. Concentric LVH. Moderate tricuspid regurgitation. Mild aortic sclerosis. Hypokalemia replenished Prediabetes Asthma Eczema Discharge Disposition: Home Discharge Instruct/Medications Diet: Cardiac 2g Na,low cholest Discharge Statement: "Patient was advised to return to the ER or call 911 if any headaches, dizziness, shortness of breath, chest pain, abdominal pain, bleeding, fevers, or worsening of medical condition. Patient was counseled about treatment plan, medications, possible side effects, patientverbalized understanding. All questions were answered to the best of my ability. This discharge took greater then 30 minutes in planning, reviewing documentation, counseling the patient, and discussing with other team members." ASSESSMENT ASSESSMENT Assessment SUSAN MILTON RESIDENT Aug 08, 2024 09:19
[2024-08-08] MEDS: EMPAGLIFLOZIN 10 MG TAB PO SCH (09:27)
[2024-08-08] MEDS: NIFEdipine ER 30 MG TAB PO SCH (09:28)
[2024-08-08] MEDS ORDERED: SPIRONOLACTONE 25 MG TAB PO SCH (10:00)
[2024-08-08] MEDS ORDERED: SODIUM CHLORIDE 0.9% 500 ML IV STA (12:30)
--- NOTE | 2024-08-08 12:36 | DVH ---
NUCLEAR MEDICINE VENTILATION/PERFUSION LUNG SCAN. INDICATION: r/o chronic thromboembolism, venoocclusive disease TECHNIQUE: Following intravenous demonstration of 6 millicuries of technetium 99m MAA, and inhalati on of 40 mCi of Tc 99m DTPA scintigrams were obtained in multiple projections of the lungs. FINDINGS: There is normal uptake of radionuclide on both the ventilation and perfusion portions of the examinat ion. No mismatched perfusion defects are demonstrated. Uptake is normally homogeneous. IMPRESSION: Low probability for PE.
[2024-08-08 13:00] VITALS: BP 137/84; PULSE 101; RESP 18; TEMP 98; O2SAT 95
[2024-08-08] MEDS ORDERED: FUROSEMIDE 20 MG/2 ML VIAL IV SCH (18:00)
--- NOTE | 2024-08-08 18:14 | DVHPN2 ---
Progress Note Date Seen: Aug 08, 2024 Resident Creating Document: TRENT CHEN Medical Necessity Reason Pt with a Central, PICC or Fol: No Subjective Review of Systems Patient was seen and examined at bedside, he states feeling better. He denied any significant chest pain, shortness of breath. Patient's blood pressure has improved significantly. Objective vital signs Vital Sign Date Time Temp Pulse Resp B/P (MAP) Pulse Ox O2 Delivery O2 Flow Rate FiO2 08/08/24 13:00 98.0 101 18 137/84 (101) 95 98.0 08/08/24 08:14 Room Air* 0 21 Total Intake and Output 08/07/24 08/07/24 08/08/24 15:00 23:00 07:00 Intake Total 1000 ml 1400 ml Output Total 900 ml Balance 100 ml 1400 ml Examination General: Awake, alert, comfortable appearing, in no acute distress. HEENT: Head is normocephalic and atraumatic. Pupils are equal, round, and reactive to light. Extraocular muscles are intact. No nasal discharge. No facial trauma. Intraoral exam shows moist mucous membranes with no tonsillar enlargement or exudate. Neck: Supple with no cervical lymphadenopathy No meningismus. No goiter. Heart: Regular rate without murmur, rub, or gallop. Lungs: Scattered crackles Abdomen: No external sign of injury. Bowel sounds are present. Abdomen is soft, nontender. No rebound, no guarding, no rigidity. There are no palpable masses. There is no flank pain on exam. Extremities: Strong peripheral pulses. There is no clubbing, no cyanosis, and no edema. Skin: No rash. Neurologic: Cranial nerves II-XII intact without motor, sensory, or cerebellar deficit, no asterixis. laboratory and microbiology Laboratory Tests 08/08/24 05:06 08/07/24 05:35 Test 08/08/24 05:06 Range/Units Serum Glucose 95 74-106 mg/dL Labs and/or images reviewed: Labs reviewed by me, Image(s) reviewed by me Problem List/Assessment/Plan Problem List/Assessment/Plan Hypertensive emergency Acute diastolic CHF, NYHA class 1 Pulmonary hypertension, likely class 5 NSTEMI likely type 2 due to above Drug induced cardiomyopathy Hypertensive heart disease Methamphetamine abuse Prediabetes Obesity Asthma, controlled Eczema Plan/Recommendation echocardiogram, shows EF 55%, RV pressure overload, pulmonary hypertension findings, RSVP 57mmHg, this is likely a pulmonary hypertension class 5 Ordered V/Q scan to rule venoocclusive disease, chronic thromboembolism, came back unremarkable Continue losartan 50mg p.o. q.d. Continue Coreg 6.25mg po bid Continue nifedipine 60 mg p.o. q.d. Maintain potassium above 4 and magnesium above 2 Continue GDMT: ARB, Jardiance, Coreg We recommend aggressive treatment of systemic hypertension, with avoidance of nitrates, patient shall continue blood pressure monitoring for next 6 weeks, and undergo right and left heart cath afterwards. Thank you for allowing us to participate in the care of this patient. Patient may be discharged from cardiac standpoint. We will sign off. Case was discussed with Dr. Carreno Plan discussed with: Patient, Other (RN) My Orders My Orders Orders - ZAYRA BEDOLLA Procedure Category Date Status Time Nm Vq Scan NM 08/08/24 Resulted 04:00 ZAYRA BEDOLLA RESIDENT Aug 08, 2024 18:14
== END 2024-08-08 13:00 | disposition left against medical advice (07) | DRG 133 ==
LOC: ER 22:35 → OVERFLOW 08-06 01:06 → TELE-WESTW 08-06 21:25
PROVIDERS: ADMIT Student in an Organized Health Care Education/Training Program; ATTEND Internal Medicine
DX: J96.21 Acute and chronic respiratory failure with hypoxia (principal); I21.A1 Myocardial infarction type 2; I50.33 Acute on chronic diastolic (congestive) heart failure; I08.2 Rheumatic disorders of both aortic and tricuspid valves; I11.0 Hypertensive heart disease with heart failure; I27.20 Pulmonary hypertension, unspecified; E66.9 Obesity, unspecified; Z53.29 Procedure and treatment not carried out because of patient's decision for other reasons; I42.7 Cardiomyopathy due to drug and external agent; Z20.822 Contact with and (suspected) exposure to COVID-19; E87.6 Hypokalemia; F15.10 Other stimulant abuse, uncomplicated; I16.1 Hypertensive emergency; Z68.33 Body mass index [BMI] 33.0-33.9, adult; Z79.899 Other long term (current) drug therapy; Z82.49 Family history of ischemic heart disease and other diseases of the circulatory system; Z79.1 Long term (current) use of non-steroidal anti-inflammatories (NSAID); Z79.2 Long term (current) use of antibiotics; Z79.84 Long term (current) use of oral hypoglycemic drugs
CPT/HCPCS: 36415; 71045; 78582; 80048; 80053; 80061; 80076; 80307; 80320; 81001; 83036; 83735; 83880; 84132; 84443; 84484; 85025; 85379; 85610; 85730; 87426; 87804; 93005; 93306; 93970; G0378

== ENCOUNTER 2024-11-08 09:49 | Emergency (ER) | payer MEDICAID ==
[~2024-11-08] VITALS: Ht 190.5 cm; Wt 113.0 kg
[~2024-11-08 09:49] MED LIST: AMOX250C3 PO; LOSA-533 PO; TRIA0.5C TOP
[2024-11-08 10:04] VITALS: BP 169/108; PULSE 108; RESP 17; TEMP 98.2; O2SAT 99
[2024-11-08] MEDS ORDERED: FUROSEMIDE 40 MG/4 ML VIAL IV ONE (10:30)
[2024-11-08 10:37] LABS: Urine Bacteria FEW /hpf (None Seen); Urine Blood 3+ /uL (Negative); Urine Color Yellow (Yellow); Urine Protein, UAD 3+ (Negative); Urine Specific Gravity 1.022 (1.001-1.035); Urine Squamous Epithelial Cell FEW /hpf (<5); Urine Urobilinogen Normal (Negative); Urine WBC 311 /HPF (0-3)
[2024-11-08 11:01] LABS: Urine Clarity Cloudy (Clear)
[2024-11-08] MEDS ORDERED: CIPR-173 PO (11:49)
--- NOTE | 2024-11-08 11:49 | ED.PDOC ---
History of Present Illness HPI Comments This is a 39-year-old male who comes in with chief complaint of shortness for breath times approximately one day. The patient was also been having some dysuria and hematuria x1 day. He is also complaining of some body pain and aches but denies any cough. He states that he has a long medical history of heart issues as well as hypertension and pulmonary hypertension but has been out of his medications for the last several days. Just ambulating to the bed, the patient was having some shortness for breath. He denies any leg swelling, fever or chest pain. After speaking with the patient was states that he was going to wait in his car. We did tell the patient not to wait in his car because he is going to be having some lab work done. Admits to methamphetamine use approximately two days ago Chief Complaint: Urinary Time Seen by MD: 10:14 Reviewed Notes: Nurses Notes, Medications, Allergies (No allergies to medications) Allergies: Coded Allergies: No Known Drug Allergy (Verified Allergy, Unknown, 05/27/21) Home Meds Reported Medications Triamcinolone Acetonide (Triamcinolone Acetonide) 0.5 % Cre, 1 APPLIC TOP TIDP, APPLIC 08/07/24 Amoxicillin Trihydrate (Amoxicillin) 250 Mg Cap, 250 MG PO Q8HR, MG 08/07/24 Losartan Potassium (Losartan Potassium) 25 Mg Tab, 25 MG PO DAILY for 30 Days, MG 08/07/24 Information Source: Patient Mode of Arrival: Ambulatory Severity: Moderate Timing: Days (Symptoms started one day ago) Duration: Since onset Prehospital treatment: None Associated signs and symptoms Associated hematuria and dysuria with the body aches and pain Past Medical History PAST MEDICAL HISTORY: CHF, HTN Past Medical History (Other): Pulmonary hypertension Surgical History: Denies all surgeries Family History Family History: Family hx of HTN Social History Smoker: Non-Smoker Alcohol: Denies ETOH Use Drugs: Methamphetamine Lives In: Home Constitutional: reports: others (Body aches and pain); denies: chills, diaphoresis, fatigue, fever, malaise, sweats, weakness EENTM: denies: blurred vision, double vision, ear bleeding, ear discharge, ear drainage, ear pain, ear ringing, eye pain, eye redness, hearing loss, mouth mike n, mouth swelling, nasal discharge, nose bleeding, nose congestion, nose pain, photophobia, tearing, throat pain, throat swelling, voice changes, others Respiratory: reports: shortness of breath; denies: cough, hemoptysis, orthopnea, SOB at rest, SOB with excertion, stridor, wheezing, others Cardiovascular: denies: chest pain, dizzy spells, diaphoresis, Dyspnea on exertion, edema, irregular heart beat, left arm pain, lightheadedness, palpitati ons, PND, syncope, others Gastrointestinal: denies: abdomen distended, abdominal pain, blood streaked bowels, constipated, diarrhea, dysphagia, difficulty swallowing, hematemesis, melena, nausea, poor appetite, poor fluid intake, rectal bleeding, rectal pain, vomiting, others Genitourinary: reports: dysuria, hematuria; denies: burning, flank pain, frequency, incontinence, penile discharge, penile sore, pain, testicle pain, testicle swelling, urgency, others Neurological: denies: dizziness, fainting, headache, left sided numbness, left sided weakness, numbness, paresthesia, pre-existing deficit, right sided numbness, right sided weakness, seizure, speech problems, tingling, tremors, weakness, others Musculoskeletal: denies: back pain, gout, joint pain, joint swelling, muscle pain, muscle stiffness, neck pain, others Integumetry: denies: bruises, change in color, change in hair/nails, dryness, laceration, lesions, lumps, rash, wounds, others Allergic/Immunocompromised: denies: Difficulty Healing, Frequent Infections, Hives, Itching, others Hematologic/Lymphatic: denies: anemia, blood clots, easy bleeding, easy bruising, swollen glands, others Endocrine: denies: excessive hunger, excessive sweating, excessive thirst, excessive urination, flushing, intolerance to cold, intolerance to heat, unexplained weight gain, unexplained weight loss, others Psychiatric: denies: anxiety, bipolar disorder, depression, hopeless, panic disorder, schizophrenia, sleepless, suicidal, others Physical Exam General Appearance: Moderate Distress HEENT: Pale [place]unt[place]ae (L), Pale Conjuntivae (R), Pharynx Normal, TMs Normal Neck: Full Range of Motion, Non-Tender, Normal, Normal Inspection Respiratory: Chest Non-Tender, Decreased Breath Sounds, Lungs Clear, No Accessory Muscle Use, Respiratory Distress Cardiovascular: No Edema, No JVD, No Murmur, No Gallop, Normal Peripheral Pulses, Regular Rate/Rhythm Breast Exam: Deferred Gastrointestinal: No Organomegaly, Non Tender, No Pulsatile Mass, Normal Bowel Sounds, Soft Genitalia: Deferred Pelvic: Deferred Rectal: Deferred Extremities: No calf tenderness, Normal capillary refill, Normal inspection, Normal range of motion, Non-tender, No pedal edema Musculoskeletal : Apperance: Normal Neurologic: Alert, sports physical therapist II-XII nml as Tested, Motor Weakness, Normal Affect, Normal Mood, No Sensory Deficits Cerebellar Function: Normal Reflexes: Normal Skin: Dry, Pallor, Warm Lymphatic: No Adenopathy Was a procedure done? Was a procedure done?: No Differential Dx Considerations may include: Acute on chronic diastolic heart failure, pneumonia, electrolyte imbalance, UTI X-Ray, Labs, Meds, VS Vital Signs Date Time Temp Pulse Resp B/P (MAP) Pulse Ox O2 Delivery O2 Flow Rate FiO2 11/08/24 10:04 98.2 108 17 169/108 (128) 99 98.2 Lab Test 11/08/24 10:00 Range/Units Urine Color Yellow Yellow Urine Clarity Cloudy H Clear Urine pH 7.0 5.0-9.0 Urine Specific [place] 1.022 1.001-1.035 Urine Protein 3+ H Negative Urine Ketones Negative Negative Urine Blood 3+ H Negative /uL Urine Nitrite 2+ H Negative Urine Bilirubin Negative Negative Urine Urobilinogen Normal Negative mg/dL Urine Leukocyte Esterase 3+ Negative /uL Urine RBC 5448 0 - 3 /hpf Urine Microscopic WBC 311 H 0-3 /HPF Urine Squamous Epithelial Cells Few <5 /hpf Urine Bacteria Few H None Seen /hpf Urine Glucose Trace Normal mg/dL The patient has a urine test done which shows a significant UTI. We did go to call the patient to have some more lab work as well as some imaging studies done but the patient has eloped from the department's We are going to send a prescription in for the patient's infection in the urine because we are concerned that it is a significant infection Images Reviewed?: Images reviewed and evaluated by me Time of 1ST Reevaluation: 11:47 Reevaluation 1ST: Unchanged Patient Education/Counseling: Diagnosis, Treatment, Prognosis Family Education/Counseling: No Family Present Departure 1 Departure Time of Disposition: 11:48 Impression: Primary Impression: UTI (urinary tract infection) Qualified Codes: N30.01 - Acute cystitis with hematuria Additional Impression: Shortness of breath Disposition: 07 LEFT AWOL/ELOPED Condition: Fair Critical Care Note Critical Care Time?: No Stability Stability form required: No Heart Score Heart Score: Heart Score Response (Comments) Value History N/A 0 EKG N/A 0 Age N/A 0 Risk Factors N/A 0 Troponin N/A 0 Total 0 SASHA MEAD MD November 08, 2024 11:49
== END 2024-11-08 12:32 | disposition left against medical advice (07) ==
LOC: ER 09:49
DX: N39.0 Urinary tract infection, site not specified (principal); R06.02 Shortness of breath; M79.18 Myalgia, other site; I11.0 Hypertensive heart disease with heart failure; I50.9 Heart failure, unspecified; I27.20 Pulmonary hypertension, unspecified; Z79.899 Other long term (current) drug therapy
CPT/HCPCS: 81001

== ENCOUNTER 2025-01-18 00:41 | Inpatient (IN) | payer MEDICAID ==
[~2025-01-18] VITALS: Ht 190.5 cm; Wt 114.5 kg
[~2025-01-18 00:41] MED LIST changes: +CIPR-173 PO
[2025-01-18 01:25] LABS: Chloride 104 mmol/L (98-107); Potassium 3.6 mmol/L (3.5-5.1); Sodium 140 mmol/L (136-145)
[2025-01-18 01:26] LABS: Anion Gap 12 (5-15); Carbon Dioxide 24 mmol/L (20-31)
[2025-01-18 01:27] LABS: Calcium 9.2 mg/dL (8.7-10.4)
[2025-01-18 01:32] LABS: BUN/Creatinine Ratio 10.1 (10.0-20.0); Blood Urea Nitrogen 13 mg/dL (9-23)
[2025-01-18 01:33] LABS: Glucose 121 mg/dL (74-106)
[2025-01-18 01:36] LABS: Hematocrit 45.0 % (41.0-53.0); Hemoglobin 15.1 g/dL (13.5-17.5); Mean Corpuscular Hemoglobin 29.0 pg (28.0-32.0); Mean Corpuscular Volume 86.0 fL (80.0-100.0); Nucleated Red Blood Cells % 0.1 %
--- NOTE | 2025-01-18 02:24 | DVH ---
CHEST RADIOGRAPH Indication: cp Technique: Single frontal view of the chest was obtained COMPARISON: XY CHEST XRAY 1 VIEW on DOS: 08/06/24, CHEST TWO VIEWS ROUTINE on DOS: 09/18/21, CXR2 on DOS : 09/18/21 FINDINGS: Lines and Tubes: None Lungs: Clear Pleura: No effusion. No pneumothorax. Cardiomediastinal contours: Borderline cardiomegaly. Bones: Unremarkable IMPRESSION: 1. Borderline cardiomegaly.
--- NOTE | 2025-01-18 04:27 | ED.PDOC ---
HPI Comments 39-year-old male with a history of CHF, hypertension, asthma and non STEMI brought in by private car complaining of chest pain for the last 4 days, described as pressure-like, constant, retrosternal, worse with exertion, a ssociated with shortness of breath. He denies any fever, cough, nausea, vomiting, diaphoresis. Patient also admitted to recent methamphetamine use. At triage, it was suggested to him that possibly the methamphetamine use was contributing to his symptoms, and that he should stop using meth. 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 Chief Complaint: Chest Pain Time Seen by MD: 04:26 Reviewed Notes: Nurses Notes Allergies: Coded Allergies: No Known Drug Allergy (Verified Allergy, Unknown, 05/27/21) Home Meds Active Scripts Ciprofloxacin Hcl (Cipro) 500 Mg Tab, 1 TAB PO BID, #20 TAB Prov:SASHA MEAD MD 11/08/24 Reported Medications Triamcinolone Acetonide (Triamcinolone Acetonide) 0.5 % Cre, 1 APPLIC TOP TIDP, APPLIC 08/07/24 Amoxicillin Trihydrate (Amoxicillin) 250 Mg Cap, 250 MG PO Q8HR, MG 08/07/24 Losartan Potassium (Losartan Potassium) 25 Mg Tab, 25 MG PO DAILY for 30 Days, MG 08/07/24 Information Source: Patient Mode of Arrival: Ambulatory Past Medical History PAST MEDICAL HISTORY: Asthma, CHF, HTN, AR Surgical History: Denies all surgeries Family History Family History: Reviewed,noncontributory to illness, Family hx of HTN Social History Smoker: Non-Smoker Alcohol: Denies ETOH Use Drugs: Methamphetamine Lives In: Home Constitutional: denies: chills, diaphoresis, fatigue, fever, malaise, sweats, weakness, others EENTM: denies: blurred vision, double vision, ear bleeding, ear discharge, ear drainage, ear pain, ear ringing, eye pain, eye redness, hearing loss, mouth pain, mouth swelling, nasal discharge, nose bleeding, nose congestion, nose pain, photophobia, tearing, throat pain, throat swelling, voice changes, others Respiratory: reports: SOB at rest, shortness of breath, SOB with excertion; denies: cough, hemoptysis, orthopnea, stridor, wheezing, others Cardiovascular: reports: chest pain; denies: dizzy spells, diaphoresis, Dyspnea on exertion, edema, irregular heart beat, left arm pain, lightheadedness, palpitations, PND, syncope, others Gastrointestinal: denies: abdomen distended, abdominal pain, blood streaked bowels, constipated, diarrhea, dysphagia, difficulty swallowing, hematemesis, melena, nausea, poor appetite, poor fluid intake, rectal bleeding, rectal pain, vomiting, others Genitourinary: denies: burning, dysuria, flank pain, frequency, hematuria, incontinence, penile discharge, penile sore, pain, testicle pain, testicle swelling, urgency, others Neurological: denies: dizziness, fainting, headache, left sided numbness, left sided weakness, numbness, paresthesia, pre-existing deficit, right sided numbness, right sided weakness, seizure, speech problems, tingling, tremors, weakness, others Musculoskeletal: denies: back pain, gout, joint pain, joint swelling, muscle pain, muscle stiffness, neck pain, others Integumetry: denies: bruises, change in color, change in hair/nails, dryness, laceration, lesions, lumps, rash, wounds, others Allergic/Immunocompromised: denies: Difficulty Healing, Frequent Infections, Hives, Itching, others Hematologic/Lymphatic: denies: anemia, blood clots, easy bleeding, easy bruising, swollen glands, others Endocrine: denies: excessive hunger, excessive sweating, excessive thirst, excessive urination, flushing, intolerance to cold, intolerance to heat, unexplained weight gain, unexplained weight loss, others Psychiatric: denies: anxiety, bipolar disorder, depression, hopeless, panic disorder, schizophrenia, sleepless, suicidal, others All Other Systems: Reviewed and Negative (Comprehensive systems review obtained and negative except for what is stated in the HPI.) Physical Exam General Appearance: No Apparent Distress, Obese HEENT: Other (Pupils and face symmetric. Moist mucous membranes.) Neck: Full Range of Motion, Normal Inspection Respiratory: No Accessory Muscle Use, No Respiratory Distress, Rales Cardiovascular: No JVD, Tachycardia Breast Exam: Deferred Gastrointestinal: Non Tender, Soft Genitalia: Deferred Pelvic: Deferred Rectal: Deferred Extremities: Normal range of motion, Non-tender Neurologic: Alert (Oriented x4), Normal Affect, Normal Mood, Other (Ambulatory) Cerebellar Function: NOT DONE Reflexes: NOT DONE Skin: Dry, Normal Color, Warm Lymphatic: NOT DONE EKG EKG : Comments Sinus tach, rate 123, normal MT and QRS intervals, QTC 494, normal axis, incomplete right bundle-branch block, nonspecific T change. Was a procedure done? Was a procedure done?: No CP Differential Dx Differential Diagnosis: Angina, Anxiety / Panic Attack, AR, Pulmonary Embolus Differential Diagnosis: CHF Differential Diagnosis: Angina, Chest Wall Pain, Costochondritis, Esophageal reflux/spasm, Gastritis, Myocardial Infarction, Pericarditis, Pneumonia X-Ray, Labs, Meds, VS Vital Signs Date Time Temp Pulse Resp B/P (MAP) Pulse Ox O2 Delivery O2 Flow Rate FiO2 01/18/25 00:46 123 01/18/25 00:43 97.6 123 22 207/125 99 97.6 Lab Test 01/18/25 03:51 01/18/25 02:00 01/18/25 01:07 Range/Units Troponin I High Sensitivity 105 *H 102 *H 111 *H </=54 ng/L White Blood Count 10.0 4.4-10.8 10^3/uL Red Blood Count 5.23 4.5-5.90 10^6/uL Hemoglobin 15.1 13.5-17.5 g/dL Hematocrit 45.0 41.0-53.0 % Mean Corpuscular Volume 86.0 80.0-100.0 fL Mean Corpuscular Hemoglobin 29.0 28.0-32.0 pg Mean Corpuscular Hemoglobin Concent 33.7 32.0-36.0 g/dL Red Cell Distribution Width 17.0 H 11.8-14.3 % Platelet Count 227 140-450 10^3/uL Mean Platelet Volume 8.0 6.9-10.8 fL Neutrophils (%) (Auto) 74.5 37.0-80.0 % Lymphocytes (%) (Auto) 17.4 10.0-50.0 % Monocytes (%) (Auto) 6.1 0.0-12.0 % Eosinophils (%) (Auto) 1.8 0.0-7.0 % Basophils (%) (Auto) 0.2 0.0-2.0 % Neutrophils # (Auto) 7.4 1.6-8.6 10 ^3/uL Lymphocytes # (Auto) 1.7 0.4-5.4 10 ^3/uL Monocytes # (Auto) 0.6 0-1.3 10 ^3/uL Eosinophils # (Auto) 0.2 0-0.8 10 ^3/uL Basophils # (Auto) 0 0-0.2 10 ^3/uL Nucleated Red Blood Cells 0.1 % Sodium Level 140 136-145 mmol/L Potassium Level 3.6 3.5-5.1 mmol/L Chloride Level 104 98-107 mmol/L Carbon Dioxide Level 24 20-31 mmol/L Anion Gap 12 5-15 Blood Urea Nitrogen 13 9-23 mg/dL Creatinine 1.29 0.700-1.30 mg/dL Glomerular Filtration Rate Calc 73 >90 mL/min BUN/Creatinine Ratio 10.1 10.0-20.0 Serum Glucose 121 H 74-106 mg/dL Calcium Level 9.2 8.7-10.4 mg/dL B-Type Natriuretic Peptide 527.60 0-100 pg/mL PROCEDURE(s): CXRP - CHEST PORTABLE REASON: cp ORDER NUMBER(s): [id number], ACCESSION NUMBER(s): [id number] CHEST RADIOGRAPH Indication: cp Technique: Single frontal view of the chest was obtained COMPARISON: XY CHEST XRAY 1 VIEW on DOS: 08/06/24, CHEST TWO VIEWS ROUTINE on DOS: 09/18/21, CXR2 on DOS: 09/18/21 FINDINGS: Lines and Tubes: None Lungs: Clear Pleura: No effusion. No pneumothorax. Cardiomediastinal contours: Borderline cardiomegaly. Bones: Unremarkable IMPRESSION: 1. Borderline cardiomegaly. X-Ray, Labs, Meds, VS Comment 39-year-old male with a history of CHF, hypertension, asthma and non STEMI complaining of chest pain and shortness of breath Vitals remarkable for heart rate 123, respiratory rate 22, BP 207/125 Exam remarkable for scant rales at bilateral lung bases and tachycardia Rhythm strip independently interpreted by me: Sinus tach, rate 123, no ectopy. Chest x-ray borderline cardiomegaly CBC unremarkable, basic metabolic panel unremarkable, BNP 527.6, serial troponins 111, 102, 105 Patient treated with the following in the ED: Aspirin 325 mg p.o., nitro bid 1/2 inch to chest wall, morphine 4 mg IV, Zofran 4 mg IV, Lasix 40 mg IV On re-evaluation, blood pressure is improving but patient is still tachycardic. Pain has improved. He is not in respiratory distress. Plan is to admit the patient for ongoing serial troponins and Cardiology evaluation. Time of 1ST Reevaluation: 04:26 Reevaluation 1ST: Unchanged Patient Education/Counseling: Diagnosis, Treatment Family Education/Counseling: No Family Present SEPSIS Sepsis Screen Date sepsis recognized/suspect: Jan 18, 2025 Time Sepsis recognized/suspect: 41 Recent Procedure: No On Antibiotic Therapy: No Respiratory Rate >20: Yes Heart Rate >90: Yes Temp<36 C (96.8 F) or >38.3 C: No SBP <90 or MAP <65 mmHG: No New Acute Mental Status Change: No Is the patient on CPAP, BIPAP,: No SEPSIS EXCLUSION NOTE: Sepsis Exclusion Note: Patient presents with SIRS criteria, but the SIRS response is attributed to [chest pain, possible amphetamine use ], not a suspected infection. Sepsis bundle is not initiated at this time, due to this reason. Further management will focus on the treatment of the above condition (s). Physician Orders Electrocardigram (01/18/25 00:54) Chest Portable (01/18/25 00:55) Urinalysis (01/18/25 00:55) Drug Screen (01/18/25 00:55) Vital Signs Date Time Temp Pulse Resp B/P (MAP) Pulse Ox O2 Delivery O2 Flow Rate FiO2 01/18/25 00:46 123 01/18/25 00:43 97.6 123 22 207/125 99 97.6 Laboratory Tests Test 01/18/25 01:07 White Blood Count 10.0 10^3/uL (4.4-10.8) Departure 1 Departure Time of Disposition: 05:00 Impression: Primary Impression: Chest pain with high risk for cardiac etiology Additional Impressions: Elevated troponin CHF exacerbation Disposition: ADMITTED INPATIENT Admit to: Tele Condition: Guarded Critical Care Note Critical Care Time?: No Stability Stability form required: No Heart Score Heart Score: Heart Score Response (Comments) Value History Moderate Suspicious 1 EKG Repolarization Disturb 1 Age <45 0 Risk Factors >3 or Hx ASHD 2 Troponin >3 x's Normal limit 2 Total 6 I personally scribed for AU CAROL,KM T MD ([email or web address]) on 01/18/25 at 04:27. Electronically submitted by Murtaza Joy ([facility]). I personally scribed for KM GALLAGHER MD ([email or web address]) on 01/18/25 at 05:25. Electronically submitted by Murtaza Joy ([facility]). KM GALLAGHER MD Jan 18, 2025 04:27
[2025-01-18] MEDS ORDERED: NITROGLYCERIN 2% OINT 1GM PKG TD ONE (04:30)
[2025-01-18] MEDS ORDERED: FUROSEMIDE 40 MG/4 ML VIAL IV ONE (04:30)
[2025-01-18] MEDS ORDERED: MORPHINE SULFATE 4 MG/ML SYR/VIAL IV ONE (05:30)
[2025-01-18] MEDS ORDERED: ONDANSETRON HCL 4 MG/2 ML VIAL IV ONE (05:30)
[2025-01-18] MEDS ORDERED: MORPHINE SULFATE INJ 2 MG/ml SYRG IV PRN (05:45)
[2025-01-18] MEDS ORDERED: NITROGLYCERIN 0.4 MG SL TAB SL PRN (05:45)
--- NOTE | 2025-01-18 05:45 | DVHHPRES ---
History of Present Illness Resident Creating Document: CHRISSY WITT RESIDENT History of Present Illness Familia Jaime is a 39-year-old male with a past medical history of asthma, CHF, hypertension, asthma, [place], pulmonary hypertension. The patient presented to the ED with a chief complain of 4 days of substernal chest pain, pressure-like, continues, irradiating to left shoulder, associated with shortness of breath, nausea, orthopnea, and elevated BP the patient reports the chest pain increases with excretion and improves at rest. The patient he is a active methamphetamine user, last time of consumption was 1 day ago, this increased his symptoms and prompt his visit to the ED. Initial evaluation showed troponnins 111, 102, 105. BP 207/125mmHg, BNP: 527. The patient will be admitted for further evaluation and management. Cardiovascular: CHF, HTN, pulmonary hypertension Pulmonary: Asthma Past Surgical History: None Family History: DM, Hypertension Smoke: No ALCOHOL: none Drugs: Other (Methamphetamines ) Review of Systems Constitutional: No: Fever, Chills, Sweats, Weakness, Malaise, Other Eyes: No: Pain, Vision change, Conjunctivae inflammation, Eyelid inflammation, Other, Redness ENT: No: Ear pain, Ear discharge, Nose pain, Nose discharge, Nose congestion, Mouth pain, Mouth swelling, Throat pain, Throat swelling, Other Respiratory: Cough, Shortness of breath, SOB with excertion, Other (Orthopnea ); No: Dry, Wheezing, Hemoptysis, Pleuritic Pain, Sputum, Wheezing Cardiovascular: Chest Pain, Orthopnea; No: Palpitations, Paroxysmal Noc. Dyspnea, Edema, Lt Headedness, Other Gastrointestinal: No: Nausea, Vomiting, Abdominal Pain, Diarrhea, Constipation, Melena, Hematochezia, Other Genitourinary: No Dysuria, No Frequency, No Incontinence, No Hematuria, No Retention, No Other Musculoskeletal: No: other, neck pain, shoulder pain, arm pain, back pain, hand pain, leg pain, foot pain Skin: No: Rash, Lesions, Jaundice, Bruising, Other Neurological: No: Weakness, Numbness, Incoordination, Change in speech, C onfusion, Seizures, Other Allergies: Coded Allergies: No Known Drug Allergy (Verified Allergy, Unknown, 05/27/21) Exam Vital Signs Vital Signs Date Time Temp Pulse Resp B/P (MAP) Pulse Ox O2 Delivery O2 Flow Rate FiO2 01/18/25 00:46 123 01/18/25 00:43 97.6 22 207/125 99 97.6 General Appearance: Alert, Oriented X3, Cooperative, mild distress HEENT: Atraumatic, Mucous membr. moist/pink Respiratory: Clear to auscultation, Normal air movement, Other (No crackles) Cardiovascular: Regular rate, Normal S1, Normal S2, No murmurs Abdominal: Normal bowel sounds, Soft, No tenderness, No hepatospenomegaly, No masses Extremities: No clubbing, No cyanosis, Other (Mild no pitting edema) Skin: No rashes, No breakdown, No significant lesion Neuro: Normal gait, Strength at 5/5 X4 ext, Normal tone, Sensation intact Psych/Mental Status: Mental status NL, Mood NL Labs/Xrays Labs Test 01/18/25 03:51 01/18/25 01:07 Range/Units Troponin I High Sensitivity 105 *H </=54 ng/L White Blood Count 10.0 4.4-10.8 10^3/uL Red Blood Count 5.23 4.5-5.90 10^6/uL Hemoglobin 15.1 13.5-17.5 g/dL Hematocrit 45.0 41.0-53.0 % Mean Corpuscular Volume 86.0 80.0-100.0 fL Mean Corpuscular Hemoglobin 29.0 28.0-32.0 pg Mean Corpuscular Hemoglobin Concent 33.7 32.0-36.0 g/dL Red Cell Distribution Width 17.0 H 11.8-14.3 % Platelet Count 227 140-450 10^3/uL Mean Platelet Volume 8.0 6.9-10.8 fL Neutrophils (%) (Auto) 74.5 37.0-80.0 % Lymphocytes (%) (Auto) 17.4 10.0-50.0 % Monocytes (%) (Auto) 6.1 0.0-12.0 % Eosinophils (%) (Auto) 1.8 0.0-7.0 % Basophils (%) (Auto) 0.2 0.0-2.0 % Neutrophils # (Auto) 7.4 1.6-8.6 10 ^3/uL Lymphocytes # (Auto) 1.7 0.4-5.4 10 ^3/uL Monocytes # (Auto) 0.6 0-1.3 10 ^3/uL Eosinophils # (Auto) 0.2 0-0.8 10 ^3/uL Basophils # (Auto) 0 0-0.2 10 ^3/uL Nucleated Red Blood Cells 0.1 % Sodium Level 140 136-145 mmol/L Potassium Level 3.6 3.5-5.1 mmol/L Chloride Level 104 98-107 mmol/L Carbon Dioxide Level 24 20-31 mmol/L Anion Gap 12 5-15 Blood Urea Nitrogen 13 9-23 mg/dL Creatinine 1.29 0.700-1.30 mg/dL Glomerular Filtration Rate Calc 73 >90 mL/min BUN/Creatinine Ratio 10.1 10.0-20.0 Serum Glucose 121 H 74-106 mg/dL Calcium Level 9.2 8.7-10.4 mg/dL B-Type Natriuretic Peptide 527.60 0-100 pg/mL SEPSIS Sepsis Screen Date sepsis recognized/suspect: Jan 18, 2025 Time Sepsis recognized/suspect: 41 Recent Procedure: No On Antibiotic Therapy: No Respiratory Rate >20: Yes Heart Rate >90: Yes Temp<36 C (96.8 F) or >38.3 C: No SBP <90 or MAP <65 mmHG: No New Acute Mental Status Change: No Is the patient on CPAP, BIPAP,: No Physician Orders Electrocardigram (01/18/25 00:54) Chest Portable (01/18/25 00:55) Urinalysis (01/18/25 00:55) Drug Screen (01/18/25 00:55) Admit (01/18/25 05:38) Code Status (01/18/25 05:38) Vital Signs .PER UNIT PROTOCOL (01/18/25 05:38) Review Orders With Adm.Md (01/18/25 05:38) Bedside Commode (01/18/25 05:38) Notify Md Of Changes From Base (01/18/25 05:38) Advance Directive (01/18/25 05:38) Echo 2d Mode Cardiac Dop (01/18/25 05:38) Patient Condition (01/18/25 05:38) Allergies (01/18/25 05:38) Nitroglycerin Sublingual (Ntrostat Subli (01/18/25 05:45) Morphine Sulfate Injection (01/18/25 05:45) Oxygen By Nasal Cannula (01/18/25 05:38) Stat Ekg For Chest Pain (01/18/25 05:38) Notify Of Changes From Base (01/18/25 05:38) Precision Mechanical Instrument Maker For 24 Hours (01/18/25 05:38) Emergency Dysrhythmia Protocol (01/18/25 05:38) Rhythm Strips Once Every Shift (01/18/25 05:38) * Cardiology Consult (01/18/25 05:38) Pantoprazole Tablet (Protonix Tablet) (01/18/25 10:00) Vital Signs Date Time Temp Pulse Resp B/P (MAP) Pulse Ox O2 Delivery O2 Flow Rate FiO2 01/18/25 00:46 123 01/18/25 00:43 97.6 123 22 207/125 99 97.6 Laboratory Tests Test 01/18/25 01:07 White Blood Count 10.0 10^3/uL (4.4-10.8) Assessment/Plan Assessment/Plan #Chest pain, rule out ACS Elevated troponin 11, 102, 105 EKG Morphine 2mg IV Aspirin 325mg po Nitroglycerin 0.4mg #Acute on Chronic CHF exacerbation #Chronic Pulmonary hypertension Furosemide 40mg IV Chest xray ECHOD2 Cardiac Consult (Dr. Carreno is patient's help desk associate) BNP: 527 #Hypertensive Emergency Furosemide 40mg IV #Asthma (Medication reconciliation) #Substance abused disorder: Methamphetamine user Counseling about quitting #Obesity Life style modification counselling Cardiac diet DVT prophylaxis- Patient deambulates PUD prophylaxis Protonics. Goals of care discussed with the patient > 35 min. Discussed plan of care with Dr. Killian Code status: Full code PCP: Galina Gonsalves, Finance Manager: Dr. Carreno. Plan discussed with: Patient. The patient agrees with the admission plan. Plan discussed with: Patient My Orders Orders - CHRISSY WITT RESIDENT Procedure Category Date Status Time Admit ADMIT 01/18/25 Transmitted 05:38 Code Status CODE 01/18/25 Transmitted 05:[address] [facility] 01/18/25 Transmitted 05:38 Review Orders With MAIK 01/18/25 Transmitted Adm 05:[address] [facility] 01/18/25 Transmitted 05:38 Notify Of Changes [facility] 01/18/25 Transmitted From Base 05:[address] [facility] 01/18/25 Transmitted 05:38 Echo 2d Mode Cardiac US 01/18/25 Transmitted DOP 05:38 Patient Condition ORDERS 01/18/25 Transmitted 05:[address] [facility] 01/18/25 Transmitted 05:38 Nitroglycerin [facility] 01/18/25 Transmitted Sublingual (Ntrostat 05:45 Morphine Sulfate [facility] 01/18/25 Transmitted Injection 05:45 Oxygen By Nasal RT 01/18/25 Transmitted Cannula 05:38 Stat Ekg For Chest [facility] 01/18/25 Transmitted Pain 05:38 Notify Md Of Changes [facility] 01/18/25 Transmitted From Base 05:38 Precision Mechanical Instrument Maker For [facility] 01/18/25 Transmitted 24 Hours 05:[address] [facility] 01/18/25 Transmitted Protocol 05:[address] [facility] 01/18/25 Transmitted Every Shift 05:38 * Cardiology Consult [facility] 01/18/25 Transmitted 05:38 Pantoprazole Tablet [facility] 01/18/25 Transmitted (Protonix Tablet) 10:00 Date of Service: Jan 18, 2025 Billing Provider: PEYTON KILLIAN MD Common Visit Codes: [id number] INP/OBS CARE (HIGH) Secondary Visit Codes: [id number] CARE PLAN 30 MINUTES CHRISSY WITT RESIDENT Jan 18, 2025 05:45
[2025-01-18 08:00] VITALS: BP 196/145; PULSE 121; RESP 20; TEMP 98.5; O2SAT 97
[2025-01-18] MEDS ORDERED: PANTOPRAZOLE 40 MG TAB PO SCH (10:00)
--- NOTE | 2025-01-20 07:49 | ECG ---
[facility] Test Date: 2025-01-18 Test Time: 00:46:01 Pat Name: LOREN VALDES Department: ED Room: [address] [place] [address] Gender: M Certified Family Mediator: LANNY : 1985 Requested By: KM MEDINA Order Number: [id number] Reading MD: Cruz Carreno Measurements Intervals [place] Rate: 123 P: 56 MA: 126 QRS: 85 QRSD: 118 T: 124 QT: 345 QTc: 494 Interpretive Statements Sinus tachycardia Left atrial enlargement Incomplete right bundle branch block Nonspecific T abnormalities, lateral leads Electronically Signed On 01-20-2025 18:18:44 PDT by Cruz Carreno Please click the below link to view image of tracing.
== END 2025-01-18 08:24 | disposition left against medical advice (07) | DRG 199 ==
LOC: ER 00:41 → OVERFLOW 05:38
PROVIDERS: ADMIT Internal Medicine; ATTEND Internal Medicine
DX: I16.1 Hypertensive emergency (principal); I24.9 Acute ischemic heart disease, unspecified; I27.20 Pulmonary hypertension, unspecified; I50.9 Heart failure, unspecified; I11.0 Hypertensive heart disease with heart failure; Z53.29 Procedure and treatment not carried out because of patient's decision for other reasons; E66.9 Obesity, unspecified; J45.909 Unspecified asthma, uncomplicated; Z79.2 Long term (current) use of antibiotics; Z83.3 Family history of diabetes mellitus; Z82.49 Family history of ischemic heart disease and other diseases of the circulatory system; Z68.31 Body mass index [BMI] 31.0-31.9, adult
CPT/HCPCS: 36415; 71045; 80048; 83880; 84484; 85025; 93005; G0378